=== PATIENT | male | born 1960 | race Caucasian/White ===

== ENCOUNTER → 2016-05-01 | Outpatient (CLI) | payer OTHER ==
--- NOTE | 2016-05-01 15:41 | US ---
EXAMINATION TYPE: US kidneys/renal and bladder DATE OF EXAM: 05/01/2016 2:57 PM COMPARISON: NONE CLINICAL HISTORY: R31.9 Hematuria. 2 weeks ago now off and on since EXAM MEASUREMENTS: Right Kidney: 10.1 x 5.2 x 5.9 cm Left Kidney: 10.4 x 5.6 x 5.7 cm Post Void Residual Volume: 10.7 mL TECHNOLOGIST IMPRESSION: Right Kidney: lower pole 0.5 x 0.9 x 1.0 cm, 0.7 x 0.8 x 0.6 cm nonshadowing hyperechoic areas, no nspecific, nonobstructing renal calculi are not excluded Left Kidney: 2.5 x 1.8 x 1.7 cm mid pole ? Column of Jonn suspected with focal cortical prominence. Bladder: solid mass left side of bladder 2.7 x 3.2 x 2.6 cm some vascularity Bilateral Jets seen: rt only Normal Post Void Residual: yes There is no evidence for hydronephrosis at this point in time. No nephrolithiasis is seen. No gaviota s are identified. The urinary bladder is anechoic. Bilateral ureteral jets are seen. Urinary bladder is poorly distended there is suspicious 2.8 x 2.6 cm round partially exophytic mass i nferiorly and posteriorly that warrants follow-up. At end of exam bladder is nearly completely emptie d on voiding. IMPRESSION: A suspicious 3.2 cm bladder wall mass is felt present, neoplasm to be excluded, further investigation with direct visualization is advised.
== END | disposition home or self-care (01) ==
LOC: RADUSWWP 14:53
PROVIDERS: ATTEND Family Medicine
DX: R31.9 Hematuria, unspecified (principal)
CPT/HCPCS: 76770

== ENCOUNTER → 2016-05-20 | Outpatient (CLI) | payer OTHER ==
--- NOTE | 2016-05-20 13:33 | CT ---
EXAMINATION TYPE: CT abdomen pelvis w con DATE OF EXAM: 05/20/2016 1:12 PM COMPARISON: NONE HISTORY: 56-year-old male Hematuria TECHNIQUE: Contiguous axial scanning of the abdomen and pelvis following administration of 100 ml Omn ipaque 300 IV contrast. Delayed images through the kidneys and bladder and coronal/sagittal reconstr uctions performed. CT DLP: 2512 mGycm Automated exposure control for dose reduction was used. FINDINGS: Heart is normal size without pericardial effusion. Lung bases show tiny 5 mm and smaller pulmonary no dules in the lingula and left lower lobe, axial images 1 and 6. No pleural effusion. Tiny hiatal hernia. There is diffuse low attenuation of the hepatic parenchyma without focal lesion appreciated there is suggestion of some fatty sparing in the central liver. Portal venous system is patent. No biliary du ctal dilatation. Gallbladder, adrenal glands, left kidney, spleen, and pancreas appear within normal limits. A couple nonobstructing calculi lower pole right kidney measuring 6 and 5 mm. There is also a subcent imeter hypodensity anterior mid pole right kidney too small fractured CT characterization, most likel y a cyst. There is symmetric uptake and excretion of contrast by both kidneys. No dilated small bowel, free fluid, or free air. Normal appendix. No mesenteric or retroperitoneal lymphadenopathy. Oral contrast has progressed to the rectum. There is sigmoid diverticulosis with focal moderate wall thickening and mild adjacent inflammatory fa t stranding at the mid to distal sigmoid, axial images 68 and 69. Bladder is urine distended. There are suspicious enhancing mural-based masses one along the left late ral bladder wall measuring 2.6 cm and one along the posterior bladder base measuring 1.9 cm. There is a small to moderate-sized containing left inguinal hernia. No abnormal fluid collection in t he pelvis or pelvic lymphadenopathy seen. Bones: Mild degenerative changes at the hips and right SI joint. Degenerative disc disease in the mid to lower lumbar spine. No osseous destructive process. IMPRESSION: 1. A LEFT LATERAL BLADDER MASS AND A POSTERIOR BLADDER BASE MASS MEASURING 2.6 AND 1.9 CM, RESPECTIVE LY, HIGHLY SUSPICIOUS FOR TCC. 2. SIGMOID DIVERTICULOSIS BUT WITH MODERATE WALL THICKENING AND ADJACENT INFLAMMATION AT THE LEVEL OF THE MID TO DISTAL SIGMOID. FINDINGS SUGGEST UNCOMPLICATED ACUTE DIVERTICULITIS. RECOMMEND FOLLOW-UP COLONOSCOPY AFTER SUCCESSFUL MANAGEMENT TO EXCLUDE AN UNDERLYING INFLAMMATORY COLON CANCER. 3. NONSPECIFIC 5 MM AND SMALLER LEFT BASILAR PULMONARY NODULES. RECOMMEND CONTRAST ENHANCED CT CHEST TO SURVEY THE ENTIRE LUNGS. 4. OTHERWISE, NO SUSPICIOUS FINDINGS IN THE ABDOMEN OR PELVIS TO SUGGEST METASTATIC DISEASE. 5. HEPATIC STEATOSIS AND NONOBSTRUCTIVE RIGHT SIDED NEPHROLITHIASIS MEASURING UP TO 6 MM. Physician is not on the Verify system. The microbiology technologist will notify the physician's office immedia tely following the dictation.
== END | disposition home or self-care (01) ==
LOC: RADCTMAIN 12:29
PROVIDERS: ATTEND Family Medicine
DX: N20.0 Calculus of kidney (principal); N32.89 Other specified disorders of bladder; K57.30 Diverticulosis of large intestine without perforation or abscess without bleeding; K76.0 Fatty (change of) liver, not elsewhere classified
CPT/HCPCS: 74177; Q9967

== ENCOUNTER 2016-08-04 08:53 | Day surgery (SDC) | payer OTHER ==
[2016-07-31 10:30] VITALS: BMI 35.4
[~2016-08-04 08:53] MED LIST: LACTATED RINGERS 1,000 ML IV SCH
[2016-08-04 09:34] VITALS: RESP 16; TEMP 97.1
[2016-08-04] MEDS ORDERED: LIDOCAINE 1% 20 ML VIAL (10MG/ML) FOR IV START INTRADERMA ONE (09:48)
[2016-08-04] MEDS ORDERED: fentaNYL (PF) 50 MCG/ML 2 ML AMP ONE (10:27)
[2016-08-04] MEDS ORDERED: MIDAZOLAM 2 MG/2 ML VIAL ONE (10:27)
[2016-08-04] MEDS ORDERED: PROPOFOL 10 MG/ML 20 ML VIAL IV ONE (10:27)
--- NOTE | 2016-08-04 10:57 | P.PCN ---
Date of Procedure: 08/04/16 Procedure(s) Performed: Procedure: Total colonoscopy. Preoperative diagnosis: Screening for neoplasia. Postoperative diagnosis: Diverticulosis with no evidence of acute diverticulitis , strictures, polyps or cancer area Preparation: HalfLytely prep. Sedation: Was provided by anesthesia. Brief clinical history: The patient is a 56-year-old male who was scheduled for this evaluation because of history of polyps. His last exam was in May 2010. At this time he has no abdominal complaints bleeding or anemia. Procedure: With the patient on his left lateral decubitus position and after informed consent and adequate sedation, the perianal area was inspected and it did not show any fissures or fistulas. There were no masses felt on digital rectal examination. The Olympus CFQ 160L video colonoscope was then inserted in the rectum in the usual fashion and advanced to the cecum. There were multiple diverticular orifices seen scattered in the sigmoid with no evidence of acute diverticulitis or strictures. There was occasional diverticular orifices seen around the hepatic flexure. The mucosa appeared healthy. No polyps or tumors were seen. I retroflexed the endoscope in the rectum before the endoscope was withdrawn. The patient tolerated the procedure well. Plan: The patient was reassured. Discussed dietary measures. He will follow up with you as planned and I recommended a repeat exam in 5 years.
[2016-08-04 11:39] VITALS: BP 121/77; PULSE 45
== END 2016-08-04 11:41 | disposition home or self-care (01) ==
LOC: ORWHC2ENDO 08:53
DX: Z12.11 Encounter for screening for malignant neoplasm of colon (principal); Z86.010 Personal history of colon polyps; K57.30 Diverticulosis of large intestine without perforation or abscess without bleeding; I10 Essential (primary) hypertension; Z85.51 Personal history of malignant neoplasm of bladder; Z79.82 Long term (current) use of aspirin; Z79.899 Other long term (current) drug therapy; Z88.6 Allergy status to analgesic agent
CPT/HCPCS: J2250; J3010; J2704; G0105; 45378

== ENCOUNTER → 2017-05-01 | Outpatient (CLI) | payer BC ==
--- NOTE | 2017-05-01 10:08 | US ---
EXAMINATION TYPE: US kidneys/renal and bladder DATE OF EXAM: 05/01/2017 COMPARISON: CT & US CLINICAL HISTORY: D49.4 F/U Staging Ca Bladder. history of tumors removed from bladder. EXAM MEASUREMENTS: Right Kidney: 11.0 x 5.8 x 5.7 cm Left Kidney: 10.3 x 6.2 x 5.4 cm Right Kidney: No hydronephrosis or masses seen Left Kidney: No hydronephrosis or masses seen Bladder: wnl. No suspicious urinary bladder abnormality is identified at this time by ultrasound. Bilateral Jets seen: no IMPRESSION: 1. Normal retroperitoneal ultrasound.
== END | disposition home or self-care (01) ==
LOC: RADUSWWP 09:37
PROVIDERS: ATTEND Urology
DX: D49.4 Neoplasm of unspecified behavior of bladder (principal)
CPT/HCPCS: 76770

== ENCOUNTER → 2017-05-08 | Outpatient (CLI) | payer BC ==
--- NOTE | 2017-05-08 12:55 | EST ---
EXERCISE STRESS DATE OF SERVICE: 05/08/2017 AGE: 57 SEX: Male HT: 5'9" WT: 245 PROTOCOL: JUNG STAGE: III DURATION OF EXERCISE: 9 minutes HEART RATE REST: 73 BLOOD PRESSURE REST: 148/88 MAXIMUM HEART RATE ACHIEVED: 160 MAXIMUM BLOOD PRESSURE: 186/103 85% MPHR: 139 100% MPHR: 163 METS: 10.5 INDICATIONS: Chest pain. CLINICAL INFORMATION: Baseline rhythm is sinus mechanism, rate is 73, normal axis, intervals, Rare PVCs. Baseline blood pressure 148/88 mmHg. Patient exercised on Jung protocol for 9 minute reaching peak rate of 160 beats per minute, which is equal to 98% maximum predicted heart rate. Peak blood pressure 186/103 mmHg. Test was terminated secondary to fatigue. There was no chest pain. Electrocardiographic monitoring revealed occasional PVCs. There was no evidence of diagnostic ischemic ST deviation. CONCLUSION: 1. Good exercise tolerance with no evidence of chest pain. 2. Occasional premature ventricular contractions. 3. Normal electrocardiograph response to exercise with no evidence of exercise-induced ischemia. MMODL / IJN: [id number] /
== END | disposition home or self-care (01) ==
LOC: RADNMMAIN 11:13
PROVIDERS: ATTEND Family Medicine
DX: I49.3 Ventricular premature depolarization (principal)
CPT/HCPCS: 93017

== ENCOUNTER 2017-07-19 17:28 | Emergency (ER) | payer BC ==
[2017-07-19 17:53] VITALS: BP 127/73; PULSE 57; RESP 18; TEMP 98.8
[2017-07-19] MEDS ORDERED: DIPH,PERTUS(ACELL)TETVAC-LF 0.5 ML VIAL IM ONE (18:07)
--- NOTE | 2017-07-19 18:25 | XR ---
EXAMINATION TYPE: XR finger RT DATE OF EXAM: 07/19/2017 COMPARISON: NONE HISTORY: Table saw injury with laceration to the right fifth digit. TECHNIQUE: 4 views of the right fifth digit were obtained FINDINGS: There is an acute complete comminuted fracture of the proximal ulnar aspect of the distal p halanx of the fifth digit. Several mineralized foci are identified at this location. These are felt t o be bone fragments and not metallic fragments. Possibility of radiopaque foreign body is however not fully excluded but thought to be unlikely. Diffuse soft tissue swelling is noted in the fifth digit. IMPRESSION: Comminuted nondisplaced fracture along the proximal ulnar aspect of the fifth finger dist al phalanx.
--- NOTE | 2017-07-19 18:29 | ED ---
General Adult HPI - General Chief complaint: Wound/Laceration Stated complaint: Laceration Right Pinky Time Seen by Provider: 07/19/17 18:02 Source: patient, RN notes reviewed Mode of arrival: ambulatory Limitations: no limitations - History of Present Illness Initial comments: 57-year-old male presents to the emergency department for a chief complaint of laceration. Patient states that about one hour ago he was using a table saw when he cut the tip of his pinky finger. Patient denies any other injuries from this. Patient states he has full sensation in the pinky finger. Patient has no other complaints at this time including shortness of breath, chest pain, abdominal pain, headache, nausea or vomiting. Tetanus up to date as of 3 weeks ago. - Related Data Home Medications Medication Instructions Recorded Confirmed Aspirin [Adult Low Dose Aspirin EC] 81 mg PO DAILY 07/31/16 08/04/16 Atenolol [Tenormin] 50 mg PO DAILY 07/31/16 08/04/16 Cholecalciferol [Vitamin D3] 5,000 unit PO DAILY 07/31/16 08/04/16 Previous Rx's Medication Instructions Recorded Cephalexin [Keflex] 500 mg PO Q12HR #20 cap 07/19/17 Allergies Allergy/AdvReac Type Severity Reaction Status Date / Time tolmetin [From Tolectin] Allergy Unknown Rash/Hives Verified 07/19/17 17:53 Review of Systems ROS Statement: Those systems with pertinent positive or pertinent negative responses have been documented in the HPI. ROS Other: All systems not noted in ROS Statement are negative. Past Medical History Past Medical History: Cancer, Hypertension Additional Past Medical History / Comment(s): HX OF POLYPS, BLADDER TUMORS WITH CHEMO TO BLADDER (MITOMYCIN- LAST RECEIVED APPROX 1 1/2 MONTHS AGO.) History of Any Multi-Drug Resistant Organisms: None Reported Past Surgical History: Hernia Repair Additional Past Surgical History / Comment(s): HERNIA (AGE 16), BLADDER TUMORS. Past Anesthesia/Blood Transfusion Reactions: No Reported Reaction Past Psychological History: No Psychological Hx Reported Smoking Status: Former smoker Past Alcohol Use History: Occasional Past Drug Use History: None Reported - Past Family History Mother Family Medical History: No Reported History General Exam Limitations: no limitations General appearance: alert, in no apparent distress Respiratory exam: Present: normal lung sounds bilaterally. Absent: respiratory distress, wheezes, rales, rhonchi, stridor Cardiovascular Exam: Present: regular rate, normal rhythm, normal heart sounds. Absent: systolic murmur, diastolic murmur, rubs, gallop, clicks Extremities exam: Present: full ROM (Full range of motion of the fifth digit. He is able to flex and extend the fifth digit against resistance including the distal phalanx.), tenderness (Tenderness to the distal phalanx of the fifth digit.), normal capillary refill (Cap refill less than 5 seconds), other (There is an avulsion type laceration to the fifth digit finger pad of the right hand about 2 cm in length.). Absent: pedal edema, joint swelling Course Vital Signs 07/19/17 17:50 Temperature 98.8 F Pulse Rate 57 L Respiratory 18 Rate Blood Pressure 127/73 O2 Sat by Pulse 96 Oximetry Procedures - Procedures Initial comment: Body area: finger pad of 5th digit of right hand extending into lateral side of finger Laceration length: 3 cm Foreign bodies: no foreign bodies Tendon involvement: none Nerve involvement: none Vascular damage: no Anesthesia: digital block Local anesthetic:6 mL 1% lidocaine Preparation: Patient was prepped and draped in the usual sterile fashion. Irrigation solution: Wound was soaked in sterile water, iodine, and soap. Wound was then irrigated with saline jet lavage. It was then cleaned out further with iodine and inspected for deep structure involvement. Irrigation method:saline jet lavage Skin closure:5-0 and 4-0 Ethilon using sterile technique Number of sutures: 4 4-0 and 9 5-0: 13 sutures in total Technique: interupted Dressing: antibiotic ointment/ gauze Patient tolerance: Patient tolerated the procedure well with no immediate complications. Medical Decision Making - Medical Decision Making 57-year-old male says to the emergency department for chief complaint of laceration to the fifth digit of the right hand with a saw. Tetanus up-to- date. The wound is about 3 cm in length and is stellate in form. There are multiple flaps to the wound. Neurovascular intact in the distal phalanx of the fifth digit. X-ray demonstrates a small comminuted fracture. Patient was given a shot of Ancef in the emergency department. Wound was sutured with 13 sutures after it was very well urinated and cleaned with iodine. Wound was covered with bacitracin and dressed with nonstick dressing. Splint was applied. Verbalized patient to return in 7-10 days for suture removal. He is to follow up with orthopedics tomorrow. He will return if he notices any signs of infection or has any worsening symptoms. - Radiology Data Comminuted nondisplaced fracture along the proximal ulnar aspect of the fifth digit distal phalanx right hand Disposition Clinical Impression: Laceration, Open fracture Disposition: HOME SELF-CARE Condition: Good Instructions: Care For Your Stitches (ED), Laceration (ED) Additional Instructions: Please take Keflex as directed. Keep the wound clean and covered until you see orthopedics. He may elevate the hand for pain relief as well as ice the finger. Motrin or Tylenol for pain relief. Follow up with orthopedics tomorrow. Please return to the emergency department if you have any worsening symptoms or signs of infection. Prescriptions: Cephalexin [Keflex] 500 mg PO Q12HR #20 cap Is patient prescribed a controlled substance at d/c from ED?: No Referrals: Harsha Yadav MD [Primary Care Provider] - 1-2 days Silvino Wood DO [Doctor of Osteopathic Medicine] - 1-2 days Time of Disposition: 20:37
[2017-07-19] MEDS ORDERED: ceFAZolin 1,000 MG VIAL IM STA (19:02)
== END 2017-07-19 20:46 | disposition home or self-care (01) ==
LOC: EC 17:28
DX: S62.666B Nondisplaced fracture of distal phalanx of right little finger, initial encounter for open fracture (principal); S61.216A Laceration without foreign body of right little finger without damage to nail, initial encounter; I10 Essential (primary) hypertension; Z53.29 Procedure and treatment not carried out because of patient's decision for other reasons; Z85.51 Personal history of malignant neoplasm of bladder; Z87.891 Personal history of nicotine dependence; Z79.82 Long term (current) use of aspirin; Z79.899 Other long term (current) drug therapy; Z88.6 Allergy status to analgesic agent; W31.2XXA Contact with powered woodworking and forming machines, initial encounter; Y92.009 Unspecified place in unspecified non-institutional (private) residence as the place of occurrence of the external cause
CPT/HCPCS: 73140; 99283; 12002; 96372; J0690

== ENCOUNTER → 2017-08-04 | Outpatient (CLI) | payer BC ==
--- NOTE | 2017-08-04 18:31 | CONS ---
CONSULTATION REASON FOR CONSULTATION: Sleep apnea. 57-year-old male patient, referred from [facility] to evaluate for sleep apnea. The patient presented for DOC certification who was referred to me for further workup. He has minimal snoring and no major hypersomnia or sleepiness. His BMI 36.1 with a neck size of 18 inches with a Mallampati class IV. 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 No history of any hypersomnia or sleepiness. No history of any recent weight gain or weight loss. Remsen Score is at 1. Goes to bed around 9 p.m., wakes up between 5 to 7:00 am in the morning. Refreshed. No restlessness in his lower extremities. No night terrors. No nightmares. No sleepwalking or sleep talking. No grinding of the teeth. No other complaints otherwise. PAST MEDICAL HISTORY: Hypertension and bladder cancer. SURGICAL HISTORY: Hernia repair and resection of bladder tumor transurethral. DRUG ALLERGIES: Are not known. MEDICATION: Includes lisinopril, metoprolol, vitamin D3 and aspirin. SOCIAL HISTORY: Nonsmoker. No history of alcohol. No history of IV drugs. FAMILY HISTORY: Brother positive for sleep apnea. REVIEW OF SYSTEMS: 12-point review of system was done. Of significance is the absence of any fatigue and sleepiness. No witnessed apneas. No insomnia. There are episodes of nocturia. He reports episodes of nocturia where he gets up 2-3 times and utilize the bathroom and this has been a chronic problem. No anxiety or panic attacks. No palpitation. No heartburn. No sweating. No anxiety and no depression. No claustrophobia. PHYSICAL EXAMINATION: BP is 107/77, pulse 60 respirations 16, temperature 97.5, saturation 96% on room air. Weight is 245. Height is 5 feet 9 inches. Neck size 18 inches. General appearance calm comfortable in no acute distress. Head is atraumatic, normocephalic. Neck: Mallampati class IV. There is no goiter or neck masses. LUNGS: Clear to auscultation. HEART: Sounds regular rate and rhythm. Normal S1, S2. No S3, S4. No murmurs. ABDOMEN: Soft, nontender. No organomegaly. EXTREMITIES: No edema. No cyanosis or clubbing. NEUROLOGIC: A and O x3. There is no focal neurological deficits. Psychiatrically is appropriate mood and affect. SKIN: Negative for any wounds or ulceration. IMPRESSION: 1. Obstructive sleep apnea suspected clinically we will need further investigation. 2. Obesity with a body mass index of 36.1. 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 4. 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 5. Bladder cancer. PLAN: Overall suspicion for KELLY is low and proceed with a home sleep study. This will be a screening test for obstructive sleep apnea. We will treat this patient accordingly. Encourage weight loss. We will continue to follow. MMODL / IJN: [id number] /
== END | disposition home or self-care (01) ==
LOC: SLEEP 16:42
PROVIDERS: ATTEND Internal Medicine Critical Care Medicine
DX: R06.83 Snoring (principal); I10 Essential (primary) hypertension; E66.9 Obesity, unspecified; C67.9 Malignant neoplasm of bladder, unspecified; Z98.890 Other specified postprocedural states; Z79.82 Long term (current) use of aspirin; Z79.899 Other long term (current) drug therapy; Z68.36 Body mass index [BMI] 36.0-36.9, adult
CPT/HCPCS: 99211

== ENCOUNTER → 2018-07-26 | Outpatient (CLI) | payer BC ==
--- NOTE | 2018-07-26 09:11 | US ---
EXAMINATION TYPE: US kidneys/renal and bladder DATE OF EXAM: 07/26/2018 COMPARISON: NONE CLINICAL HISTORY: D49.4 F/U staging bladder ca. EXAM MEASUREMENTS: Right Kidney: 10.4 x 5.5 x 5.7 cm Left Kidney: 10.7 x 5.5 x 4.7 cm Right Kidney: shadowing echogenic foci, probable stone measuring 0.5 x 0.3 x 0.5cm Left Kidney: prominent renal pelvis vs mild hydro Bladder: wnl Bilateral Jets seen: Yes No masses are identified. The urinary bladder is anechoic. Bilateral ureteral jets are seen. IMPRESSION: Nonobstructing nephrolithiasis. Prominence of the left renal pelvis with mild Trevorton difficult to excl ude.
== END | disposition home or self-care (01) ==
LOC: RADUSWWP 08:27
PROVIDERS: ATTEND Urology
DX: N20.0 Calculus of kidney (principal); D49.4 Neoplasm of unspecified behavior of bladder
CPT/HCPCS: 76770

== ENCOUNTER → 2019-09-12 | Outpatient (CLI) | payer BC ==
[2019-09-12 15:58] LABS: African American GFR (CKD) >90 (>60 ml/min/1.73 sqM); Blood Urea Nitrogen 18 mg/dL (9-20); Non-African American GFR(CKD) 85 (>60 ml/min/1.73 sqM)
--- NOTE | 2019-09-12 19:06 | CT ---
EXAMINATION TYPE: CT abdomen pelvis w con DATE OF EXAM: 09/12/2019 COMPARISON: 05/20/2016 HISTORY: Air bubbles during urination with history of bladder cancer. CT DLP: 1895 mGycm CONTRAST: CT scan of the abdomen and pelvis is performed with Oral Contrast and with IV Contrast, patient injec zachery with 100 mL of Isovue 300. FINDINGS: LUNG BASES-: Stable sub-5 mm pulmonary nodules at the left lower lobe. Totaling 4 in number. No infil trate. LIVER/GB: No calcified gallstones. No space occupying hepatic lesion. Biliary tree is of normal ca liber. PANCREAS: No inflammation. No distinct mass. SPLEEN: No splenic enlargement. No lesion seen. ADRENALS: No nodule. No thickening. KIDNEYS/BLADDER: There is air within the urinary bladder. On sagittal image 61 there appears to be p ossible fistulous communication with the colon. Correlate clinically. There is nonobstructing nephrol ithiasis lower pole right kidney. No hydronephrosis. No nephrolithiasis. No distinct renal mass. BOWEL: Normal appendix. Sigmoid diverticulosis without active diverticulitis. Normal bowel caliber. No inflammation. GENITAL ORGANS: No gross abnormality. LYMPH NODES: No greater than 1cm abdominal or pelvic lymph nodes are appreciated. AORTA: No significant abnormality. OSSEOUS STRUCTURES: No significant abnormality is seen. OTHER: Fat-containing inguinal hernia on the left. IMPRESSION: 1. There is air within the urinary bladder. On sagittal image 61 there appears to be possible fistulo us communication with the colon. Correlate clinically 2. Sigmoid diverticulosis without active diverticulitis at this time. 3. Stable left lower lobe pulmonary nodules. 4. Nonobstructing nephrolithiasis right kidney.
== END | disposition home or self-care (01) ==
LOC: RADCTMAIN 14:38
PROVIDERS: ATTEND Urology
DX: K57.30 Diverticulosis of large intestine without perforation or abscess without bleeding (principal); N20.0 Calculus of kidney; C67.9 Malignant neoplasm of bladder, unspecified; Z88.6 Allergy status to analgesic agent
CPT/HCPCS: 82565; 84520; 74177; 36415; Q9967

== ENCOUNTER → 2019-12-21 | Outpatient (CLI) | payer BC ==
[2019-12-21 10:14] LABS: HCT 50.3 % (39.0-53.0); HGB 16.9 gm/dL (13.0-17.5); MCH 29.9 pg (25.0-35.0); MCHC 33.6 g/dL (31.0-37.0); Mean Platelet Volume 7.7; Platelet Count 170 k/uL (150-450); RBC 5.65 m/uL (4.30-5.90); RDW 12.8 % (11.5-15.5); WBC 10.8 k/uL (3.8-10.6)
[2019-12-21 10:27] LABS: Potassium 4.5 mmol/L (3.5-5.1)
== END | disposition home or self-care (01) ==
LOC: LABPAT 08:55
PROVIDERS: ATTEND Surgery
DX: Z01.818 Encounter for other preprocedural examination (principal); N32.1 Vesicointestinal fistula
CPT/HCPCS: 36415; 80051; 85027; 86850; 86900; 86901; 93005

== ENCOUNTER 2019-12-29 11:50 | Inpatient (IN) | payer BC ==
--- NOTE | 2019-12-29 12:41 | P.GSHP ---
History of Present Illness H&P Date: 12/29/19 Chief Complaint: Colovesical fistula 59-year-old male seen in the office in October. Patient with recent diagnosis of colovesical fistula. Here today for colonoscopy. Mild crampy gassy pains at times. Some pneumaturia occasionally. Scheduled for sigmoid colectomy tomorro w. Past Medical History Past Medical History: Cancer, Hypertension, Prostate Disorder Additional Past Medical History / Comment(s): HX OF POLYPS, BLADDER TUMORS WITH CHEMO TO BLADDER (MITOMYCIN- LAST RECEIVED APPROX 2014) History of Any Multi-Drug Resistant Organisms: None Reported Past Surgical History: Hernia Repair Additional Past Surgical History / Comment(s): HERNIA (AGE 16), sx to remove BLADDER TUMORS. Past Anesthesia/Blood Transfusion Reactions: No Reported Reaction Smoking Status: Former smoker - Past Family History Mother Family Medical History: No Reported History Medications and Allergies Home Medications Medication Instructions Recorded Confirmed Type Aspirin EC [Ecotrin Low Dose] 81 mg PO DAILY 12/26/19 12/26/19 History Canagliflozin/Metformin HCl 1 each PO QAM 12/26/19 12/26/19 History [Invokamet 150-1,000 mg Tablet] Celecoxib [CeleBREX] 200 mg PO DAILY 12/26/19 12/26/19 History Cholecalciferol [Vitamin D3 (25 5,000 unit PO DAILY 12/26/19 12/26/19 History Mcg = 1000 Iu)] Losartan [Cozaar] 50 mg PO QAM 12/26/19 12/26/19 History Metoprolol Succinate [Toprol XL] 50 mg PO QAM 12/26/19 12/26/19 History Omeprazole 40 mg PO DAILY 12/26/19 12/26/19 History Tamsulosin [Flomax] 0.4 mg PO DAILY 12/26/19 12/26/19 History Allergies Allergy/AdvReac Type Severity Reaction Status Date / Time tolmetin [From Tolectin] Allergy Unknown Rash/Hives Verified 12/26/19 14:21 Surgical - Exam Physical exam: General: Well-developed, well-nourished HEENT: Normocephalic, sclerae nonicteric Abdomen: Nontender, nondistended Extremities: No edema Neuro: Alert and oriented Assessment and Plan (1) Colovesical fistula Narrative/Plan: Will proceed with colonoscopy at this time. Current Visit: Yes Status: Acute Code(s): N32.1 - VESICOINTESTINAL FISTULA SNOMED Code(s): 66124952
[2019-12-30] MEDS ORDERED: ACETAMINOPHEN TAB 500 MG TAB PO ONE (05:00)
[2019-12-30] MEDS ORDERED: ALVIMOPAN 12 MG CAPSULE PO ONE (05:00)
[2019-12-30] MEDS ORDERED: metroNIDAZOLE-NS PMX 500 MG in SALINE 1 100ML.BAG IVPB ONE (05:00)
[2019-12-30] MEDS ORDERED: DEXAMETHASONE SOD PHOSPHATE 10 MG/ML 1 ML VIAL IV ONE (05:43)
[2019-12-30] MEDS ORDERED: SCOPOLAMINE 1.5MG/72HR PATCH TRANSDERM ONE (05:43)
[2019-12-30] MEDS ORDERED: HYDROmorphone 0.5 MG/0.5 ML SYRINGE IVP PRN (05:43)
[2019-12-30] MEDS ORDERED: LIDOCAINE 1% (10MG/ML) FOR IV START INTRADERMA PRN (05:43)
[2019-12-30] MEDS ORDERED: ONDANSETRON 4 MG/2 ML VIAL IVP ONE (05:43)
[2019-12-30] MEDS ORDERED: HEPARIN SODIUM,PORCINE 5,000 UNIT/ML 1 ML VIAL SQ ONE (06:00)
[2019-12-30] MEDS: LACTATED RINGERS 1,000 ML IV SCH ×2 (08:56→14:43)
[2019-12-30] MEDS ORDERED: ACETAMINOPHEN TAB 500 MG TAB ONE (09:09)
[2019-12-30 09:39] LABS: Glucose,Whole Blood 122 mg/dL (75-99)
[2019-12-30] MEDS ORDERED: MIDAZOLAM 2 MG/2 ML VIAL IVP ONE (09:39)
--- NOTE | 2019-12-30 09:47 | P.HPADDEND ---
H&P Addendum H&P Addendum Date: 12/30/19 Patient returns today after colonoscopy yesterday. Had some bilious stained diarrhea last night. No abdominal pain. No pneumaturia. We'll proceed with elective sigmoid resection for colovesical fistula. Risks and benefits previously discussed in detail with the patient. All questions answered.
[2019-12-30] MEDS ORDERED: GLYCOPYRROLATE 0.2 MG/ML 2 ML VIAL ONE (10:08)
[2019-12-30] MEDS ORDERED: ROCURONIUM 10 MG/ML (10 ML VIAL) IV ONE (10:08)
[2019-12-30] MEDS ORDERED: SUCCINYLCHOLINE CHLORIDE 100 MG/5 ML SYR IV ONE (10:08)
[2019-12-30] MEDS ORDERED: LIDOCAINE 1% INJ 10MG/ML (20 ML MDV) ONE (10:08)
[2019-12-30] MEDS ORDERED: fentaNYL (PF) 50 MCG/ML 2 ML AMP ONE (10:08)
[2019-12-30] MEDS ORDERED: MIDAZOLAM 2 MG/2 ML VIAL ONE (10:08)
[2019-12-30] MEDS ORDERED: PROPOFOL 10 MG/ML 20 ML VIAL IV ONE (10:08)
[2019-12-30] MEDS ORDERED: PHENYLEPHRINE-0.9% NACL SYG 1 MG/10 ML SYRINGE ONE (10:08)
[2019-12-30] MEDS ORDERED: ePHEDrine SULFATE/0.9% NACL/PF 50 MG/5 ML SYRINGE IV ONE (10:08)
[2019-12-30] MEDS ORDERED: NEOSTIGMINE 1 MG/ML 10 ML VIAL ONE (10:08)
[2019-12-30] MEDS ORDERED: NALOXONE 0.4 MG/ML 1 ML VIAL IV PRN (10:32)
[2019-12-30] MEDS ORDERED: LACTATED RINGERS 1,000 ML IV ONE (11:00)
[2019-12-30] MEDS ORDERED: HYDROmorphone 1 MG/ML 1 ML SYRINGE IVP PRN (12:27)
[2019-12-30] MEDS ORDERED: METOCLOPRAMIDE 5 MG/ML 2 ML VIAL IVP PRN (12:27)
[2019-12-30] MEDS ORDERED: ONDANSETRON 4 MG/2 ML VIAL IVP PRN (12:27)
--- NOTE | 2019-12-30 12:31 | P.OP ---
Date of Procedure: 12/30/19 Procedure(s) Performed: PREOPERATIVE DIAGNOSIS: Colovesical fistula POSTOPERATIVE DIAGNOSIS: Same PROCEDURE: Low anterior sigmoid resection SURGEON: Elin EBL: 50 mL ANESTHESIA: General COMPLICATIONS: None OPERATIVE PROCEDURE: Patient place in the operative table in the supine position. The patient was placed under general anesthesia. The patient was then placed in lithotomy. The abdomen was prepped and draped in usual sterile fashion. A vertical incision was made extending from the infraumbilical l ocation to the suprapubic location. The fascia was divided as well. The Bookwalter retractor was utilized. The sigmoid colon was fully mobilized by incising the white line of Toldt. The left and right ureters were both identified and preserved. A site was chosen for division of the sigmoid colon proximally. The degree of chronic inflammatory changes was present in the mid to distal sigmoid colon. There was dense adhesions between the distal sigmoid colon and the bladder. Blunt dissection and electrocautery were used to separate these 2 structures. In doing so no visible hole was identified in either the bowel or the bladder. I did place a silk stitch on the specimen where the suspected fistula was present. A small colotomy was created and the 29 EEA anvil was advanced into the lumen of the sigmoid colon and milked proximally. The bowel was then divided using a linear 75 stapler and the anvil was brought out adjacent to the staple line. A 3-0 silk pursestring suture was placed around the anvil at that location. The mesentery was divided using the LigaSure device and Vicryl ties. Dissection took place down to the proximal rectum where the tenia was noted to splay out. The proximal rectum was divided using the contour stapler. The specimen was passed off the field at that point. No signs of bleeding at either staple line was noted after irrigation. The stapler was then inserted into the anus and brought up to the staple line. The obturator was brought out just anterior to the staple line. The 2 portions of the stapler were connected to one another and subsequently tightened and fired. The bowel was clamped proximal to the anastomosis. The rigid sigmoidoscope was utilized to fill the anastomotic site nicely with air. There was saline in the pelvis at this time. No evidence of leak was seen. The abdomen was irrigated with saline. The liver, stomach, visualized colon, and small bowel appeared normal by palpation. The midline fascia was then reapproximated using 2 separate double-stranded #1 PDS sutures. The subcutaneous tissues were closed using 3-0 Vicryl sutures. The skin was then closed using staci. Sterile dressings were then applied. DISPOSITION: Stable to recovery room
[2019-12-30] MEDS: ROPIVACAINE 250 MG, HYDROMORPHONE (PF) 5 MG in SODIUM CHLORIDE 0.9% 200 ML EPIDURAL PRN (12:47)
[2019-12-30 13:05] LABS: Glucose,Whole Blood 147 mg/dL (75-99)
--- NOTE | 2019-12-30 13:59 | P.ANPRN ---
Procedure Note - Anesthesia - Epidural/Spinal Epidural Continuous Time Out Performed: Yes Date of Procedure: 12/30/19 Procedure Start Time: 09:38 Procedure Stop Time: 09:47 Location of Patient: PreOp Indication: Acute Post-Operative Pain, Requested by Surgeon Sedation Type: Sedate with meaningful contact maintained Preparation: Sterile Dressing Position: Sitting Catheter: Indwelling Needle Guage: 18 Injectate: Test Dose Lidocaine1.5% w/1:200,000 epi Blood Aspirated: No Pain Paresthesia on Injection Noted: No Events: Uneventful and Well Tolerated (test dose 3cc given)
[2019-12-30] MEDS: D5-0.45% NACL WITH KCL 20MEQ/L 1,000 ML IV SCH ×2 (15:35→21:31)
[2019-12-30] MEDS: HEPARIN SODIUM,PORCINE 5,000 UNIT/ML 1 ML VIAL SQ SCH ×2 (15:39→23:25)
[2019-12-30 16:09] LABS: African American GFR (CKD) >90 (>60 ml/min/1.73 sqM); Anion Gap 8 mmol/L; Blood Urea Nitrogen 15 mg/dL (9-20); Calcium 9.3 mg/dL (8.4-10.2); Carbon Dioxide 29 mmol/L (22-30); Chloride 102 mmol/L (98-107); Glucose 146 mg/dL (74-99); Non-African American GFR(CKD) >90 (>60 ml/min/1.73 sqM); Potassium 4.6 mmol/L (3.5-5.1); Sodium 139 mmol/L (137-145)
[2019-12-30 21:10] LABS: Glucose,Whole Blood 212 mg/dL (75-99)
[2019-12-30] MEDS: FAMOTIDINE 20 MG/2 ML VIAL IV SCH (21:30)
[2019-12-30] MEDS: INSULIN ASPART (NovoLOG) 100 UNIT/ML VIAL SQ SCH (21:31)
[2019-12-31] MEDS: LACTATED RINGERS 1,000 ML IV SCH ×2 (04:55)
--- NOTE | 2019-12-31 06:20 | P.PN ---
Progress Note - Text Progress Note Date: 12/31/19 patient is POD#1, has a lumbar epidural running at 5 ml/hr when I visited the patient. he rates his pain as 0/10 even when trying to move in bed. he denies any excessive numbness or weakness in lower extremities he denies back pain or headache the epidural insertion site is clean with no redness or any fluid drainage. will leave the epidural in place for two more days unless the surgical team wants early discontinuation. will follow
[2019-12-31 06:39] LABS: Basophils % (A) 0 %; Eosinophils # (A) 0.1 k/uL (0-0.7); Eosinophils % (A) 1 %; HCT 53.8 % (39.0-53.0); HGB 17.1 gm/dL (13.0-17.5); Lymphocytes # (A) 1.2 k/uL (1.0-4.8); Lymphocytes % (A) 7 %; MCH 29.3 pg (25.0-35.0); MCHC 31.8 g/dL (31.0-37.0); MCV 92.2 fL (80.0-100.0); Mean Platelet Volume 7.5; Monocytes # (A) 1.6 k/uL (0-1.0); Monocytes % (A) 10 %; Neutrophils # (A) 13.9 k/uL (1.3-7.7); Neutrophils % (A) 82 %; Platelet Count 237 k/uL (150-450); RBC 5.84 m/uL (4.30-5.90); RDW 12.6 % (11.5-15.5)
[2019-12-31 06:52] LABS: Glucose,Whole Blood 176 mg/dL (75-99)
[2019-12-31] MEDS: ALVIMOPAN 12 MG CAPSULE PO SCH ×2 (07:39→20:20)
[2019-12-31] MEDS: INSULIN ASPART (NovoLOG) 100 UNIT/ML VIAL SQ SCH ×4 (07:39→20:20)
[2019-12-31] MEDS: D5-0.45% NACL WITH KCL 20MEQ/L 1,000 ML IV SCH ×4 (07:39→23:43)
[2019-12-31] MEDS: HEPARIN SODIUM,PORCINE 5,000 UNIT/ML 1 ML VIAL SQ SCH ×3 (07:39→23:43)
[2019-12-31] MEDS: LOSARTAN 50 MG TAB PO SCH (07:40)
[2019-12-31] MEDS: TAMSULOSIN 0.4 MG CAP.ER.24H PO SCH (07:40)
[2019-12-31] MEDS: FAMOTIDINE 20 MG/2 ML VIAL IV SCH ×2 (07:40→20:20)
[2019-12-31] MEDS ORDERED: METOPROLOL SUCCINATE (ER) 50 MG TAB.ER.24H PO SCH (09:00)
[2019-12-31 11:41] LABS: Glucose,Whole Blood 154 mg/dL (75-99)
--- NOTE | 2019-12-31 15:15 | P.CONS ---
History of Present Illness - Reason for Consult Consult date: 12/31/19 - History of Present Illness 59-year-old male patient history of bladder tumors treated with chemotherapy to bladder, admitted to the hospital with colovesical fistula. Patient underwent colonoscopy followed by elective lower anterior sigmoid resection on 12/[address] nash, does not have ostomy site. Sheridan catheter remains in place at this time. Patient is yet to pass gas or had bowel movement. Blood pressure stable po stoperatively, he has not be bradycardic, takes metoprolol at home which has been decreased to 25 mg. We'll check EKG, no known history of arrhythmia. Afebrile. Postoperative WBC 17.0, most likely reactive secondary to surgery as there is no evidence of acute infection. Has lumbar epidural for analgesia postop. Review of Systems Review Of Systems: Constitutional: No fever, no chills, no night sweats. EENT: No headache. No blurred vision or double vision, no loss of vision. Lungs: No shortness of breath, cough, no sputum production. No wheezing. Cardiovascular: No chest pain, no lower extremity edema. Abdominal: . Incisional pain Genitourinary: No dysuria, increased frequency, urgency. No urinary retention. Musculoskeletal: No myalgias. No muscle weakness Integumentary: No wounds, no lesions. Neurologic: No aphasia. No facial droop. No change in mentation. Psychiatric: No depression. No anxiety. No mood swings. Past Medical History Past Medical History: Cancer, Hypertension, Prostate Disorder Additional Past Medical History / Comment(s): HX OF POLYPS, BLADDER TUMORS WITH CHEMO TO BLADDER (MITOMYCIN- LAST RECEIVED APPROX 2014) History of Any Multi-Drug Resistant Organisms: None Reported Past Surgical History: Hernia Repair Additional Past Surgical History / Comment(s): HERNIA (AGE 16), sx to remove BLADDER TUMORS. Past Anesthesia/Blood Transfusion Reactions: No Reported Reaction Smoking Status: Former smoker - Past Family History Mother Family Medical History: No Reported History Medications and Allergies Home Medications Medication Instructions Recorded Confirmed Type Aspirin EC [Ecotrin Low Dose] 81 mg PO DAILY 12/26/19 12/30/19 History Canagliflozin/Metformin HCl 1 each PO QAM 12/26/19 12/30/19 History [Invokamet 150-1,000 mg Tablet] Celecoxib [CeleBREX] 200 mg PO DAILY 12/26/19 12/30/19 History Cholecalciferol [Vitamin D3 (25 5,000 unit PO DAILY 12/26/19 12/30/19 History Mcg = 1000 Iu)] Losartan [Cozaar] 50 mg PO QAM 12/26/19 12/30/19 History Metoprolol Succinate [Toprol XL] 50 mg PO QAM 12/26/19 12/30/19 History Omeprazole 40 mg PO DAILY 12/26/19 12/30/19 History Tamsulosin [Flomax] 0.4 mg PO DAILY 12/26/19 12/30/19 History Allergies Allergy/AdvReac Type Severity Reaction Status Date / Time tolmetin [From Tolectin] Allergy Unknown Rash/Hives Verified 12/30/19 08:45 Physical Exam Vitals: Vital Signs Temp Pulse Pulse Resp BP Pulse Ox 12/31/19 07:00 97.4 F L 53 L 18 152/77 95 12/31/19 01:31 97.5 F L 46 L 12 152/74 94 L 12/30/19 23:40 16 12/30/19 19:38 54 L 16 12/30/19 19:00 98.7 F 54 L 16 127/71 93 L 12/30/19 15:49 52 L 16 12/30/19 15:15 54 L 108/62 91 L Intake and Output 12/31/19 12/31/19 12/31/19 06:59 14:59 22:59 Intake Total 1000 1080 Output Total 525 Balance 475 1080 Intake: Intake, IV Titration 1000 Amount D5-0.45% NaCl with KCl 1000 20Meq/l 1,000 ml @ 125 mls/hr IV .Q8H [facility] Rx#: [id number] Oral 1080 Output: Urine 225 Emesis 300 Other: Voiding Method Indwelling Catheter Indwelling Catheter # Emeses 1 Gen: This is a [ ] HEENT: Head is atraumatic, normocephalic. Pupils equal, round. Sclerae is anicteric. NECK: Supple. No JVD. No lymphadenopathy. No thyromegaly. LUNGS: Clear to auscultation. No wheezes or rhonchi. No intercostal retractions. HEART: Regular rate and rhythm. No murmur. ABDOMEN: Soft. Bowel sounds are sluggish. No masses. No tenderness. EXTREMITIES: No pedal edema. No calf tenderness. NEUROLOGICAL: Patient is awake, alert and oriented x3. Cranial nerves 2 through 12 are grossly intact. Results CBC & Chem 7: 12/31/19 06:05 12/30/19 15:28 Labs: Abnormal Lab Results - Last 24 Hours (Table) 12/30/19 12/30/19 12/31/19 Range/Units 15:28 21:08 06:05 WBC 17.0 H (3.8-10.6) k/uL Hct 53.8 H (39.0-53.0) % Neutrophils # 13.9 H (1.3-7.7) k/uL Monocytes # 1.6 H (0-1.0) k/uL Glucose 146 H (74-99) mg/dL POC Glucose (mg/dL) 212 H (75-99) mg/dL 12/31/19 12/31/19 Range/Units 06:52 11:40 WBC (3.8-10.6) k/uL Hct (39.0-53.0) % Neutrophils # (1.3-7.7) k/uL Monocytes # (0-1.0) k/uL Glucose (74-99) mg/dL POC Glucose (mg/dL) 176 H 154 H (75-99) mg/dL Assessment and Plan Assessment: - Plan: Assessment and Plan -Colovesical fistula most probably secondary due to past history of chemotherapy for bladder tumors: Day 1 postop following or anterior sigmoid resection, no ostomy site. -Leukocytosis: Most probably reactive secondary to surgery, no evidence of acute infection -Asymptomatic bradycardia: Possibly secondary to beta karen, we'll decrease metoprolol 25 daily and check EKG -Type 2 diabetes mellitus: Using oral agents at home including metformin, we will use insulin sliding scale -BPH: Continue home dose of Flomax, Sheridan catheter remains in place at this time. -Hypertension: Continued on losartan, and metoprolol 25 daily, blood pressure is stable DVT prophylaxis per primary team-
--- NOTE | 2019-12-31 15:22 | P.PN ---
Subjective Progress Note Date: 12/31/19 CHIEF COMPLAINT: Diverticulitis HISTORY OF PRESENT ILLNESS: The patient is a 59-year-old male status post sigmoid colectomy for diverticulitis. Patient is status post sigmoid colectomy. He's been in bed. He reports no flatus or bowel movements. He is tolerating liquids. ROS: No reports of nausea and vomiting. No bowel movements. No fevers or chills. No new chest pain. No productive sputum PHYSICAL EXAM: VITAL SIGNS: Reviewed CONSTITUTIONAL: Well developed and in no acute distress. EYES: Conjuctivae without sclera icterus. Extraocular movements grossly intact. HEAD, EARS, NOSE, THROAT: Moist buccal mucosa. Head is atraumatic, normocephalic. Hears conversational speech. No nasal drainage. NECK: Supple. No thyroidomegaly. RESPIRATORY: Non-labored respirations and equal bilateral excursions. CARDIOVASCULAR: Palpable 2+ radial pulses. Regular rate. Regular rhythm. ABDOMEN: Incisions clean dry and intact. Soft. No peritonitis. MUSCULOSKELETAL: No gross deformity of the lower extremities noted. No clubbing. No cyanosis. SKIN: Good skin turgor. Well perfused. NEUROLOGIC: Cranial nerves II through XII grossly intact. No focal or lateralizing signs. PSYCH: Appropriate affect. Alert and oriented to person, place and time. CLINICAL LABS: White blood cell count elevated over 17,000 ASSESSMENT: 1. Diverticulitis with colovesical fistula PLAN: 1. Patient advised to ambulate. 2. Continue Sheridan cath and epidural. 3. Continue antibiotics Objective - Vital Signs Vital signs: Vital Signs Temp 97.4 F L 12/31/19 07:00 Pulse 53 L 12/31/19 07:00 Resp 18 12/31/19 07:00 BP 152/77 12/31/19 07:00 Pulse Ox 95 12/31/19 07:00 Intake & Output 12/30/19 12/31/19 12/31/19 18:59 06:59 18:59 Intake Total 2119 1999 1079 Output Total 350 2024 Balance 1770 -25 1080 Weight 100 kg Intake: IV 2120 Intake, IV Titration 2000 Amount D5-0.45% NaCl with KCl 2000 20Meq/l 1,000 ml @ 125 mls/hr IV .Q8H [facility] Rx#: [id number] Oral 1080 Output: Urine 300 725 Emesis 1300 Estimated Blood Loss 50 Other: Voiding Method Indwelling Catheter Indwelling Catheter # Emeses 1 - Labs CBC & Chem 7: 12/31/19 06:05 12/30/19 15:28 Labs: Abnormal Lab Results - Last 24 Hours (Table) 12/30/19 12/30/19 12/31/19 Range/Units 15:28 21:08 06:05 WBC 17.0 H (3.8-10.6) k/uL Hct 53.8 H (39.0-53.0) % Neutrophils # 13.9 H (1.3-7.7) k/uL Monocytes # 1.6 H (0-1.0) k/uL Glucose 146 H (74-99) mg/dL POC Glucose (mg/dL) 212 H (75-99) mg/dL 12/31/19 12/31/19 Range/Units 06:52 11:40 WBC (3.8-10.6) k/uL Hct (39.0-53.0) % Neutrophils # (1.3-7.7) k/uL Monocytes # (0-1.0) k/uL Glucose (74-99) mg/dL POC Glucose (mg/dL) 176 H 154 H (75-99) mg/dL Assessment and Plan (1) Diverticulitis Current Visit: Yes Status: Acute Code(s): K57.92 - DVTRCLI OF INTEST, PART UNSP, W/O PERF OR ABSCESS W/O BLEED SNOMED Code(s): 805871060 (2) Colovesical fistula Current Visit: Yes Status: Acute Code(s): N32.1 - VESICOINTESTINAL FISTULA SNOMED Code(s): 35273696
[2019-12-31 16:50] LABS: Glucose,Whole Blood 145 mg/dL (75-99)
[2019-12-31 20:10] LABS: Glucose,Whole Blood 159 mg/dL (75-99)
[2019-12-31] MEDS: ROPIVACAINE 250 MG, HYDROMORPHONE (PF) 5 MG in SODIUM CHLORIDE 0.9% 200 ML EPIDURAL PRN (22:43)
[2020-01-01 06:18] LABS: Basophils # (A) 0.1 k/uL (0-0.2); Basophils % (A) 0 %; Eosinophils # (A) 0.1 k/uL (0-0.7); Eosinophils % (A) 1 %; HCT 46.4 % (39.0-53.0); HGB 15.5 gm/dL (13.0-17.5); Lymphocytes # (A) 1.7 k/uL (1.0-4.8); Lymphocytes % (A) 11 %; MCH 31.2 pg (25.0-35.0); MCHC 33.4 g/dL (31.0-37.0); MCV 93.4 fL (80.0-100.0); Mean Platelet Volume 7.1; Monocytes # (A) 1.2 k/uL (0-1.0); Monocytes % (A) 8 %; Neutrophils # (A) 12.3 k/uL (1.3-7.7); Neutrophils % (A) 79 %; Platelet Count 157 k/uL (150-450); RBC 4.97 m/uL (4.30-5.90); RDW 12.5 % (11.5-15.5); WBC 15.5 k/uL (3.8-10.6)
[2020-01-01 06:56] LABS: Glucose,Whole Blood 108 mg/dL (75-99)
[2020-01-01] MEDS: LACTATED RINGERS 1,000 ML IV SCH ×3 (07:15→20:52)
[2020-01-01] MEDS: INSULIN ASPART (NovoLOG) 100 UNIT/ML VIAL SQ SCH ×4 (07:16→20:32)
[2020-01-01] MEDS: ALVIMOPAN 12 MG CAPSULE PO SCH ×2 (08:22→20:32)
[2020-01-01] MEDS: FAMOTIDINE 20 MG/2 ML VIAL IV SCH ×2 (08:22→20:32)
[2020-01-01] MEDS: TAMSULOSIN 0.4 MG CAP.ER.24H PO SCH (08:23)
[2020-01-01] MEDS: LOSARTAN 50 MG TAB PO SCH (08:23)
[2020-01-01] MEDS: D5-0.45% NACL WITH KCL 20MEQ/L 1,000 ML IV SCH (08:23)
[2020-01-01] MEDS: HEPARIN SODIUM,PORCINE 5,000 UNIT/ML 1 ML VIAL SQ SCH ×3 (08:23→23:14)
[2020-01-01] MEDS ORDERED: METOPROLOL SUCCINATE (ER) 25 MG TAB.ER.24H PO SCH (09:00)
[2020-01-01 11:39] LABS: Glucose,Whole Blood 135 mg/dL (75-99)
--- NOTE | 2020-01-01 12:47 | P.PN ---
Subjective Progress Note Date: 01/01/20 59-year-old male patient history of bladder tumors treated with chemotherapy to bladder, admitted to the hospital with colovesical fistula. Patient underwent colonoscopy followed by elective lower anterior sigmoid resection on 12/[address] nash, does not have ostomy site. Sheridan catheter remains in place at this time. Patient is yet to pass gas or had bowel movement. Blood pressure stable postoperatively, he has not be bradycardic, takes metoprolol at home which has been decreased to 25 mg. We'll check EKG, no known history of arrhythmia. Afebrile. Postoperative WBC 17.0, most likely reactive secondary to surgery as there is no evidence of acute infection. Has lumbar epidural for analgesia po stop. 01/01/2020 Patient seen sitting up in chair, appears no acute distress. Continues to be bradycardic, metoprolol decreased to 25 mg yesterday, her is currently 54 we'll discontinue metoprolol and increased dose of losartan. He is controlled, has epidural in place. Hemodynamically stable, afebrile. Tolerating oral intake on clear liquids, will decrease IV fluids. Review Of Systems: Constitutional: No fever, no chills, no night sweats. Lungs: No shortness of breath, cough, no sputum production. No wheezing. Cardiovascular: No chest pain, no lower extremity edema. Abdominal: . Incisional pain Genitourinary: No dysuria, increased frequency, urgency. No urinary retention. Objective - Vital Signs Vital signs: Vital Signs Temp 97.6 F 01/01/20 07:00 Pulse 54 L 01/01/20 07:00 Resp 18 01/01/20 07:00 BP 137/78 01/01/20 07:00 Pulse Ox 95 01/01/20 07:00 Intake & Output 12/31/19 01/01/20 01/01/20 18:59 06:59 18:59 Intake Total 1080 2083.083 Output Total 1200 Balance 1080 883.083 Intake: Intake, IV Titration 2083.083 Amount D5-0.45% NaCl with KCl 2000 20Meq/l 1,000 ml @ 125 mls/hr IV .Q8H [facility] Rx#: [id number] Ropivacaine 250 mg 83.083 Hydromorphone (Pf) 5 mg In Sodium Chloride 0.9% 200 ml @ Per Protocol EPIDURAL .Q0M PRN Rx#: [id number] Oral 1080 Output: Urine 1200 Other: Voiding Method Indwelling Catheter Indwelling Catheter Indwelling Catheter - Exam HEENT: Head is atraumatic, normocephalic. Pupils equal, round. Sclerae is anicteric. NECK: Supple. No JVD. No lymphadenopathy. No thyromegaly. LUNGS: Clear to auscultation. No wheezes or rhonchi. No intercostal retr actions. HEART: Regular rate and rhythm. No murmur. ABDOMEN: Soft. Bowel sounds are sluggish. No masses. No tenderness. EXTREMITIES: No pedal edema. No calf tenderness. NEUROLOGICAL: Patient is awake, alert and oriented x3. Cranial nerves 2 through 12 are grossly intact. - Labs CBC & Chem 7: 01/01/20 05:53 12/30/19 15:28 Labs: Abnormal Lab Results - Last 24 Hours (Table) 12/31/19 12/31/19 01/01/20 Range/Units 16:48 20:08 05:53 WBC 15.5 H (3.8-10.6) k/uL Neutrophils # 12.3 H (1.3-7.7) k/uL Monocytes # 1.2 H (0-1.0) k/uL POC Glucose (mg/dL) 145 H 159 H (75-99) mg/dL 01/01/20 01/01/20 Range/Units 06:55 11:37 WBC (3.8-10.6) k/uL Neutrophils # (1.3-7.7) k/uL Monocytes # (0-1.0) k/uL POC Glucose (mg/dL) 108 H 135 H (75-99) mg/dL Assessment and Plan Plan: Assessment and Plan -Colovesical fistula most probably secondary due to past history of chemotherapy for bladder tumors: Day 1 postop following or anterior sigmoid resection, no ostomy site. Epidural in place for postoperative pain management. -Leukocytosis: Most probably reactive secondary to surgery, no evidence of acute infection -Asymptomatic bradycardia: Discontinue metoprolol and increased dose of losartan -Type 2 diabetes mellitus: Using oral agents at home including metformin, we will use insulin sliding scale -BPH: Continue home dose of Flomax, Sheridan catheter remains in place at this time. -Hypertension: Losartan increased to 50, but will discontinue due to bradycardia DVT prophylaxis per primary team-
[2020-01-01 13:27] LABS: Hemoglobin A1C 5.5 % (4.0-6.0)
[2020-01-01 16:44] LABS: Glucose,Whole Blood 105 mg/dL (75-99)
--- NOTE | 2020-01-01 17:51 | P.PN ---
Subjective Progress Note Date: 01/01/20 CHIEF COMPLAINT: Diverticulitis HISTORY OF PRESENT ILLNESS: The patient is a 59-year-old male status post sigmoid colectomy for diverticulitis. Patient is status post sigmoid colectomy. He is sitting up at bedside. Sheridan catheter including epidural in place. No passage of flatus. "I feel it coming." Pain is well-controlled. ROS: No reports of nausea and vomiting. No bowel movements. No fevers or chills. No new chest pain. No productive sputum PHYSICAL EXAM: VITAL SIGNS: Reviewed CONSTITUTIONAL: Well developed and in no acute distress. EYES: Conjuctivae without sclera icterus. Extraocular movements grossly intact. HEAD, EARS, NOSE, THROAT: Moist buccal mucosa. Head is atraumatic, n ormocephalic. Hears conversational speech. No nasal drainage. NECK: Supple. No thyroidomegaly. RESPIRATORY: Non-labored respirations and equal bilateral excursions. CARDIOVASCULAR: Palpable 2+ radial pulses. Regular rate. Regular rhythm. ABDOMEN: Incisions clean dry and intact. MUSCULOSKELETAL: No gross deformity of the lower extremities noted. No clubbing. No cyanosis. SKIN: Good skin turgor. Well perfused. NEUROLOGIC: Cranial nerves II through XII grossly intact. No focal or latera lizing signs. PSYCH: Appropriate affect. Alert and oriented to person, place and time. CLINICAL LABS: White blood cell count elevated over 17,000 improved over 15,000. ASSESSMENT: 1. Diverticulitis with colovesical fistula PLAN: 1. Await bowel function. 2. Ambulation encouraged Objective - Vital Signs Vital signs: Vital Signs Temp 98.6 F 01/01/20 14:31 Pulse 54 L 01/01/20 14:31 Resp 20 01/01/20 14:31 BP 132/73 01/01/20 14:31 Pulse Ox 96 01/01/20 14:31 Intake & Output 12/31/19 01/01/20 01/01/20 18:59 06:59 18:59 Intake Total 1080 2083.083 540 Output Total 1200 Balance 1080 883.083 540 Intake: Intake, IV Titration 2083.083 Amount D5-0.45% NaCl with KCl 2000 20Meq/l 1,000 ml @ 125 mls/hr IV .Q8H [facility] Rx#: [id number] Ropivacaine 250 mg 83.083 Hydromorphone (Pf) 5 mg In Sodium Chloride 0.9% 200 ml @ Per Protocol EPIDURAL .Q0M PR[facility] Rx#: [id number] Oral 1080 540 Output: Urine 1200 Other: Voiding Method Indwelling Catheter Indwelling Catheter Indwelling Catheter - Labs CBC & Chem 7: 01/01/20 05:53 12/30/19 15:28 Labs: Abnormal Lab Results - Last 24 Hours (Table) 12/31/19 01/01/20 01/01/20 Range/Units 20:08 05:53 06:55 WBC 15.5 H (3.8-10.6) k/uL Neutrophils # 12.3 H (1.3-7.7) k/uL Monocytes # 1.2 H (0-1.0) k/uL POC Glucose (mg/dL) 159 H 108 H (75-99) mg/dL 01/01/20 01/01/20 Range/Units 11:37 16:42 WBC (3.8-10.6) k/uL Neutrophils # (1.3-7.7) k/uL Monocytes # (0-1.0) k/uL POC Glucose (mg/dL) 135 H 105 H (75-99) mg/dL Assessment and Plan (1) Diverticulitis Current Visit: Yes Status: Acute Code(s): K57.92 - DVTRCLI OF INTEST, PART UNSP, W/O PERF OR ABSCESS W/O BLEED SNOMED Code(s): 091454923 (2) Colovesical fistula Current Visit: Yes Status: Acute Code(s): N32.1 - VESICOINTESTINAL FISTULA SNOMED Code(s): 27724069
[2020-01-01 20:05] LABS: Glucose,Whole Blood 147 mg/dL (75-99)
--- NOTE | 2020-01-01 23:00 | P.PN ---
Progress Note - Text Progress Note Date: 01/01/20 POD #2, s/p Sub-total colectomy. Patient doing well, epidural catheter infusing at 5cc/hr with good analgesia. No side effects noted. Site looks ok, without signs of infection or inflammation. Will continue current care, and plan on DC of epidural catheter in am. Discussed with nursing, who will contact Surgery to obtain alternative pain Rx orders upon removal of epidural catheter.
[2020-01-02 06:19] LABS: Basophils # (A) 0.1 k/uL (0-0.2); Basophils % (A) 1 %; Eosinophils # (A) 0.2 k/uL (0-0.7); Eosinophils % (A) 2 %; HCT 47.7 % (39.0-53.0); HGB 16.2 gm/dL (13.0-17.5); Lymphocytes # (A) 1.6 k/uL (1.0-4.8); Lymphocytes % (A) 15 %; MCH 31.3 pg (25.0-35.0); MCHC 34.1 g/dL (31.0-37.0); Mean Platelet Volume 7.1; Monocytes # (A) 0.9 k/uL (0-1.0); Monocytes % (A) 8 %; Neutrophils # (A) 7.7 k/uL (1.3-7.7); Neutrophils % (A) 73 %; Platelet Count 149 k/uL (150-450); RBC 5.18 m/uL (4.30-5.90); RDW 12.2 % (11.5-15.5); WBC 10.6 k/uL (3.8-10.6)
--- NOTE | 2020-01-02 06:26 | P.PN ---
Progress Note - Text Progress Note Date: 01/02/20
[2020-01-02 06:57] LABS: Glucose,Whole Blood 125 mg/dL (75-99)
[2020-01-02] MEDS: INSULIN ASPART (NovoLOG) 100 UNIT/ML VIAL SQ SCH ×4 (07:12→20:45)
[2020-01-02] MEDS: ALVIMOPAN 12 MG CAPSULE PO SCH ×2 (08:11→21:18)
[2020-01-02] MEDS: TAMSULOSIN 0.4 MG CAP.ER.24H PO SCH (08:11)
[2020-01-02] MEDS: LOSARTAN 50 MG TAB PO SCH (08:11)
[2020-01-02] MEDS: HEPARIN SODIUM,PORCINE 5,000 UNIT/ML 1 ML VIAL SQ SCH ×2 (08:11→16:48)
[2020-01-02] MEDS: FAMOTIDINE 20 MG/2 ML VIAL IV SCH ×2 (08:11→21:18)
--- NOTE | 2020-01-02 10:20 | P.PN ---
<Teresa Box - Last Filed: 01/02/20 10:15> Subjective Progress Note Date: 01/02/20 CHIEF COMPLAINT: Colovesical fistula HISTORY OF PRESENT ILLNESS: Status post lower anterior sigmoid resection. Patient is scheduled for epidural and Sheridan catheter be removed today. Patient did report having some nausea after surgery that now has resolved. He denies any nausea or vomiting today. Denies any flatus or bowel movement. He is not reporting any pain at this time. He is afebrile. White count is down from 15.5-10.6. And he is currently on a clear liquid diet. PHYSICAL EXAM: VITAL SIGNS: Reviewed. GENERAL: Well-developed in no acute distress. HEENT: No sclera icterus. Extraocular movements grossly intact. Moist buccal mucosa. Head is atraumatic, normocephalic. ABDOMEN: Soft. Nondistended. Nontender. Patient dressing did have small areas of blood NEUROLOGIC: Alert and oriented. Cranial nerves II through XII grossly intact. ASSESSMENT: 1. Colovesical fistula status post low anterior sigmoid resection. Postop day #3 PLAN: -Patient is scheduled for epidural and Sheridan catheter to be removed today -Continue with pain medications as needed -Encourage patient to ambulate -Encourage patient to use incentive spirometer -GI prophylaxis Pepcid and DVT prophylaxis subcu heparin Physician Family Resource Management Professor note has been reviewed by physician. Signing provider agrees with the documented findings, assessment, and plan of care. Objective - Vital Signs Vital signs: Vital Signs Temp 98.5 F 01/02/20 07:00 Pulse 58 L 01/02/20 07:00 Resp 16 01/02/20 07:00 BP 128/76 01/02/20 07:00 Pulse Ox 95 01/02/20 07:00 Intake & Output 01/01/20 01/02/20 01/02/20 18:59 06:59 18:59 Intake Total 540 160 Output Total 4000 Balance 540 -3840 Intake: Intake, IV Titration 160 Amount D5-0.45% NaCl with KCl 160 20Meq/l 1,000 ml @ 125 mls/hr IV .Q8H [facility] Rx#: [id number] Oral 540 Output: Urine 4000 Other: Voiding Method Indwelling Catheter Indwelling Catheter Indwelling Catheter - Labs CBC & Chem 7: 01/02/20 05:59 12/30/19 15:28 Labs: Abnormal Lab Results - Last 24 Hours (Table) 01/01/20 01/01/20 01/01/20 Range/Units 11:37 16:42 20:04 Plt Count (150-450) k/uL POC Glucose (mg/dL) 135 H 105 H 147 H (75-99) mg/dL 01/02/20 01/02/20 Range/Units 05:59 06:55 Plt Count 149 L (150-450) k/uL POC Glucose (mg/dL) 125 H (75-99) mg/dL <Fabian Worthington - Last Filed: 01/02/20 11:12> Subjective As above. Patient doing well. Epidural and Sheridan catheter had been removed. He is having bowel movements. Will increase diet. Add oral and when necessary analgesics. Keep dressing in place. May shower Objective - Vital Signs Vital signs: Vital Signs Temp 98.5 F 01/02/20 07:00 Pulse 58 L 01/02/20 07:00 Resp 16 01/02/20 07:00 BP 128/76 01/02/20 07:00 Pulse Ox 95 01/02/20 07:00 Intake & Output 01/01/20 01/02/20 01/02/20 18:59 06:59 18:59 Intake Total 540 160 Output Total 4000 200 Balance 540 -3840 -200 Intake: Intake, IV Titration 160 Amount D5-0.45% NaCl with KCl 160 20Meq/l 1,000 ml @ 125 mls/hr IV .Q8H [facility] Rx#: [id number] Oral 540 Output: Urine 4000 200 Uretheral (Sheridan) 200 Other: Voiding Method Indwelling Catheter Indwelling Catheter Indwelling Catheter # Bowel Movements 1 - Labs CBC & Chem 7: 01/02/20 05:59 01/02/20 05:59 Labs: Abnormal Lab Results - Last 24 Hours (Table) 01/01/20 01/01/20 01/01/20 Range/Units 11:37 16:42 20:04 Plt Count (150-450) k/uL Glucose (70-110) mg/dL POC Glucose (mg/dL) 135 H 105 H 147 H (75-99) mg/dL 01/02/20 01/02/20 01/02/20 Range/Units 05:59 05:59 06:55 Plt Count 149 L (150-450) k/uL Glucose 114 H (70-110) mg/dL POC Glucose (mg/dL) 125 H (75-99) mg/dL Assessment and Plan (1) Colovesical fistula Current Visit: Yes Status: Acute Code(s): N32.1 - VESICOINTESTINAL FISTULA SNOMED Code(s): 00045287
[2020-01-02 10:55] LABS: African American GFR (CKD) 113.3 (60.0-200.0); Anion Gap 5.6 mmol/L (4.00-12.00); Carbon Dioxide 30.4 mmol/L (21.6-31.8); Non-African American GFR(CKD) 97.8 (60.0-200.0); Potassium 4.2 mmol/L (3.5-5.5)
[2020-01-02] MEDS ORDERED: HYDROcodone/APAP 5-325MG 1 EACH TAB PO PRN (11:04)
[2020-01-02 11:36] LABS: Glucose,Whole Blood 160 mg/dL (75-99)
[2020-01-02] MEDS: KETOROLAC 15 MG/ML 1 ML VIAL IVP SCH ×2 (12:16→17:43)
--- NOTE | 2020-01-02 16:12 | P.PN ---
Subjective Progress Note Date: 01/02/20 59-year-old male patient history of bladder tumors treated with chemotherapy to bladder, admitted to the hospital with colovesical fistula. Patient underwent colonoscopy followed by elective lower anterior sigmoid resection on 12/[address] nash, does not have ostomy site. Sheridan catheter remains in place at this time. Patient is yet to pass gas or had bowel movement. Blood pressure stable postoperatively, he has not be bradycardic, takes metoprolol at home which has been decreased to 25 mg. We'll check EKG, no known history of arrhythmia. Afebrile. Postoperative WBC 17.0, most likely reactive secondary to surgery as there is no evidence of acute infection. Has lumbar epidural for analgesia po stop. 01/01/2020 Patient seen sitting up in chair, appears no acute distress. Continues to be bradycardic, metoprolol decreased to 25 mg yesterday, her is currently 54 we'll discontinue metoprolol and increased dose of losartan. He is controlled, has epidural in place. Hemodynamically stable, afebrile. Tolerating oral intake on clear liquids, will decrease IV fluids. 01/02/2020 today in reevaluation patient doing well, epidural has been removed, having minimal pain. He has been up ambulating, passing gashad bowel movement since yesterday. Tolerating oral intake. Review Of Systems: Constitutional: No fever, no chills, no night sweats. Lungs: No shortness of breath, cough, no sputum production. No wheezing. Cardiovascular: No chest pain, no lower extremity edema. Abdominal: . Incisional pain Genitourinary: No dysuria, increased frequency, urgency. No urinary retention. Objective - Vital Signs Vital signs: Vital Signs Temp 97.9 F 01/02/20 14:37 Pulse 65 01/02/20 14:37 Resp 18 01/02/20 14:37 BP 148/73 01/02/20 14:37 Pulse Ox 97 01/02/20 14:37 Intake & Output 01/01/20 01/02/20 01/02/20 18:59 06:59 18:59 Intake Total 540 160 296 Output Total 4000 300 Balance 540 -3840 -4 Intake: Intake, IV Titration 160 Amount D5-0.45% NaCl with KCl 160 20Meq/l 1,000 ml @ 125 mls/hr IV .Q8H [facility] Rx#: [id number] Oral 540 296 Output: Urine 4000 300 Uretheral (Sheridan) 200 Other: Voiding Method Indwelling Catheter Indwelling Catheter Indwelling Catheter # Bowel Movements 1 - Exam HEENT: Head is atraumatic, normocephalic. Pupils equal, round. Sclerae is anicteric. NECK: Supple. No JVD. No lymphadenopathy. No thyromegaly. LUNGS: Clear to auscultation. No wheezes or rhonchi. No intercostal retractions. HEART: Regular rate and rhythm. No murmur. ABDOMEN: Soft. Bowel sounds are sluggish. No masses. No tenderness. EXTREMITIES: No pedal edema. No calf tenderness. NEUROLOGICAL: Patient is awake, alert and oriented x3. Cranial nerves 2 through 12 are grossly intact. 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 Epidural out, minimal pain. -Leukocytosis: Most probably reactive secondary to surgery, no evidence of acute infection -Asymptomatic bradycardia: continue losartan, metoprolol discontinued. -Type 2 diabetes mellitus: Using oral agents at home including metformin, we will use insulin sliding scale -BPH: Continue home dose of Flomax, Sheridan catheter remains in place at this time. -Hypertension: Losartan increased to 50, but will discontinue due to bradycardia DVT prophylaxis per primary team-
[2020-01-02 16:41] LABS: Glucose,Whole Blood 95 mg/dL (75-99)
[2020-01-02 20:28] LABS: Glucose,Whole Blood 103 mg/dL (75-99)
[2020-01-03] MEDS: HEPARIN SODIUM,PORCINE 5,000 UNIT/ML 1 ML VIAL SQ SCH (00:09)
[2020-01-03] MEDS: KETOROLAC 15 MG/ML 1 ML VIAL IVP SCH ×4 (00:09→19:08)
[2020-01-03] MEDS ORDERED: HEPARIN SODIUM,PORCINE 5,000 UNIT/ML 1 ML VIAL IV PRN (02:42)
[2020-01-03] MEDS ORDERED: HEPARIN SOD,PORK IN 0.45% NACL 25,000 UNIT in 0.45% NACL 1 250ML.BAG IV SCH (02:45)
[2020-01-03] MEDS ORDERED: DILTIAZEM 125 MG in SODIUM CHLORIDE 0.9% 100 ML IV SCH (03:00)
[2020-01-03] MEDS: LACTATED RINGERS 1,000 ML IV SCH (03:15)
[2020-01-03 06:23] LABS: Glucose,Whole Blood 127 mg/dL (75-99)
[2020-01-03] MEDS: INSULIN ASPART (NovoLOG) 100 UNIT/ML VIAL SQ SCH ×4 (06:57→20:50)
[2020-01-03] MEDS: FAMOTIDINE 20 MG/2 ML VIAL IV SCH ×2 (08:23→20:51)
[2020-01-03] MEDS: LOSARTAN 50 MG TAB PO SCH (08:24)
[2020-01-03] MEDS: TAMSULOSIN 0.4 MG CAP.ER.24H PO SCH (08:24)
[2020-01-03] MEDS: METOPROLOL TARTRATE 50 MG TAB PO SCH ×2 (09:52→20:51)
[2020-01-03 11:08] VITALS: BMI 32.7
[2020-01-03] MEDS ORDERED: METOPROLOL TARTRATE 25 MG TAB PO STA ×2 (11:10→11:25)
--- NOTE | 2020-01-03 11:13 | P.PN ---
Subjective 59-year-old male patient history of bladder tumors treated with chemotherapy to bladder, admitted to the hospital with colovesical fistula. Patient underwent colonoscopy followed by elective lower anterior sigmoid resection on 12/[address] nash, does not have ostomy site. Sheridan catheter remains in place at this time. Patient is yet to pass gas or had bowel movement. Blood pressure stable postoperatively, he has not be bradycardic, takes metoprolol at home which has been decreased to 25 mg. We'll check EKG, no known history of arrhythmia. Afebrile. Postoperative WBC 17.0, most likely reactive secondary to surgery as there is no evidence of acute infection. Has lumbar epidural for analgesia postop. 01/01/2020 Patient seen sitting up in chair, appears no acute distress. Continues to be bradycardic, metoprolol decreased to 25 mg yesterday, her is currently 54 we'll discontinue metoprolol and increased dose of losartan. He is controlled, has epidural in place. Hemodynamically stable, afebrile. Tolerating oral intake on clear liquids, will decrease IV fluids. 01/02/2020 today in reevaluation patient doing well, epidural has been removed, having minimal pain. He has been up ambulating, passing gashad bowel movement since yesterday. Tolerating oral intake. 01/03/2020 Patient went into atrial fibrillation with rapid ventricular rate patient was subsequently transferred to cardiac care unit. Presently his heart rate is still high and presented patient on Cardizem was resumed on his metoprolol his metoprolol was discontinued yesterday because of the sinus bradycardia. Echocardiogram is being obtained. Constitutional: Denied any fatigue denied any fever. Cardio vascular: denied any chest pain, palpitations Gastrointestinal denied any nausea vomiting Pulmonary: Denied any shortness of breath cough Neurologic denied any new focal deficits All inpatient medications were reviewed and appropriate changes in these medications as dictated in the interval history and assessment and plan. Objective - Vital Signs Vital signs: Vital Signs Temp 98.1 F 01/03/20 08:00 Pulse 113 H 01/03/20 08:00 Resp 18 01/03/20 08:00 BP 113/66 01/03/20 08:00 Pulse Ox 92 L 01/03/20 08:00 Intake & Output 01/02/20 01/03/20 01/03/20 18:59 06:59 18:59 Intake Total 532 300 427 Output Total 700 400 200 Balance -168 -100 227 Weight 100.516 kg 100.516 kg Intake: Intake, IV Titration 67 Amount Heparin Sod,Pork in 0.45% 67 NaCl 25,000 unit In 0.45 % NaCl 1 250ml.bag @ 10 UNITS/KG/HR 10 mls/hr IV .Q24H [facility] Rx#:[id number] Oral 532 300 360 Output: Urine 700 400 200 Uretheral (Sheridan) 200 Other: Voiding Method Indwelling Catheter Toilet Urinal # Voids 3 # Bowel Movements 1 - Exam PHYSICAL EXAMINATION: GENERAL: The patient is alert and oriented x3, not in any acute distress. Well developed, well nourished. HEENT: Pupils are round and equally reacting to light. EOMI. No scleral icterus. No conjunctival pallor. Normocephalic, atraumatic. No pharyngeal erythema. No thyromegaly. CARDIOVASCULAR: S1 and S2 present. No murmurs, rubs, or gallops. Patient has irregularly irregular rhythm with the increased heart rate. PULMONARY: Chest is clear to auscultation, no wheezing or crackles. ABDOMEN: Soft, nontender, nondistended, normoactive bowel sounds. No palpable organomegaly. MUSCULOSKELETAL: No joint swelling or deformity. EXTREMITIES: No cyanosis, clubbing, or pedal edema. NEUROLOGICAL: Gross neurological examination did not reveal any focal deficits. SKIN: No rashes. 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 Epidural out, minimal pain. -Leukocytosis: Most probably reactive secondary to surgery, no evidence of acute infection New-onset atrial fibrillation with rapid and regular rate patient will be sta rted on anti-correlation patient heart rate is still high patient is presently on Cardizem echocardiogram is being obtained and patient was resumed on his metoprolol -Type 2 diabetes mellitus: Using oral agents at home including metformin, we will use insulin sliding scale -BPH: Continue home dose of Flomax, Sheridan catheter remains in place at this time. -Hypertension: Losartan increased to 50, but will discontinue due to bradycardia DVT prophylaxis per primary team-
--- NOTE | 2020-01-03 11:18 | P.CRDCN ---
History of Present Illness Consult date: 01/03/20 History of present illness: CHIEF COMPLAINT: A. fib with RVR HISTORY OF PRESENT ILLNESS: This is a 59-year old male with a past medical history significant for hypertension and diabetes mellitus. patient does not follow with a investment trader. We have been asked to see the patient in consultation for new-onset atrial fibrillation. Patient is status post low anterior resection with Dr. Worthington secondary to colovesicular fistula. Postoperative day #4. Overnight, patient went into A. fib with RVR. patient examined this might bedside. He remains in atrial fibrillation with RVR up to the 150s. He is on a Cardizem drip at 10 mg an hour. He is also on a IV heparin drip. He denies chest pain or pressure. Denies shortness of breath. Denies palpitations. DIAGNOSTICS: EKG reveals A. fib with RVR Laboratory data: WBC 10.6. Hemoglobin 16.2. Platelet count 149. Sodium 139. Potassium 4.2. BUN 12. Creatinine 0.8. Current home cardiac medications include Toprol-XL 50 mg daily, aspirin 81 mg daily, and Cozaar 50 mg daily REVIEW OF SYSTEMS: At the time of my exam: CONSTITUTIONAL: Denies fever or chills. HEENT: Denies blurred vision, vision changes, or eye pain. Denies hemoptysis CARDIOVASCULAR: Denies chest pain, orthopnea, PND or palpitations RESPIRATORY: No shortness of breath. GASTROINTESTINAL: Denies abdominal pain. Denies nausea or vomiting. HEMATOLOGIC: Denies bleeding disorders. GENITOURINARY: Denies any blood in urine. SKIN: Denies pruitis. Denies rash. PHYSICAL EXAM: VITAL SIGNS: Reviewed. GENERAL: Well-developed in no acute distress. HEENT: Head is normocephalic. Pupils are equal, round. Sclerae anicteric. Mucous membranes of the mouth are moist. Neck supple. No JVD or thyromegaly LUNGS: Respirations even and unlabored. Lungs essentially clear to auscultation bilaterally. HEART: Tachycardic. Irregular rate and rhythm. S1 and S2 heard. ABDOMEN: Soft. Nondistended. Nontender. EXTREMITIES: Normal range of motion. No clubbing or cyanosis. Peripheral pulses intact. No lower extremity edema NEUROLOGIC: Awake and alert. Oriented x 3. ASSESSMENT: New-onset atrial fibrillation with RVR Colovesicular fistula, status post low anterior resection Hypertension Diabetes mellitus, type II Obesity: BMI 32.7 History of nicotine dependence, in remission PLAN: Resume Metoprolol. Change to Metoprolol Tartrate 50mg BID. Case management consulted for insurance coverage for Eliquis Continue cardizem drip while heart rate uncontrolled Check TSH Obtain 2-D echo to assess cardiac structure and function Nurse practitioner note has been reviewed by physician. Signing provider agrees with the documented findings, assessment, and plan of care. Past Medical History Past Medical History: Cancer, Hypertension, Prostate Disorder Additional Past Medical History / Comment(s): HX OF POLYPS, BLADDER TUMORS WITH CHEMO TO BLADDER (MITOMYCIN- LAST RECEIVED APPROX 2014) History of Any Multi-Drug Resistant Organisms: None Reported Past Surgical History: Hernia Repair Additional Past Surgical History / Comment(s): HERNIA (AGE 16), sx to remove BLADDER TUMORS. Past Anesthesia/Blood Transfusion Reactions: No Reported Reaction Smoking Status: Former smoker - Past Family History Mother Family Medical History: No Reported History Medications and Allergies Home Medications Medication Instructions Recorded Confirmed Type Aspirin EC [Ecotrin Low Dose] 81 mg PO DAILY 12/26/19 12/30/19 History Canagliflozin/Metformin HCl 1 each PO QAM 12/26/19 12/30/19 History [Invokamet 150-1,000 mg Tablet] Celecoxib [CeleBREX] 200 mg PO DAILY 12/26/19 12/30/19 History Cholecalciferol [Vitamin D3 (25 5,000 unit PO DAILY 12/26/19 12/30/19 History Mcg = 1000 Iu)] Losartan [Cozaar] 50 mg PO QAM 12/26/19 12/30/19 History Metoprolol Succinate [Toprol XL] 50 mg PO QAM 12/26/19 12/30/19 History Omeprazole 40 mg PO DAILY 12/26/19 12/30/19 History Tamsulosin [Flomax] 0.4 mg PO DAILY 12/26/19 12/30/19 History Apixaban [Eliquis] 5 mg PO BID #60 tab 01/03/20 Rx Allergies Allergy/AdvReac Type Severity Reaction Status Date / Time tolmetin [From Tolectin] Allergy Unknown Rash/Hives Verified 12/30/19 08:45 Physical Exam Vitals: Vital Signs Temp Pulse Resp BP BP BP Pulse Ox 01/03/20 08:00 98.1 F 113 H 18 113/66 92 L 01/03/20 04:00 98.5 F 147 H 18 133/85 95 01/03/20 01:15 98.4 F 155 H 20 111/72 01/02/20 19:00 98.5 F 64 20 143/79 96 01/02/20 14:37 97.9 F 65 18 148/73 97 Intake and Output 01/02/20 01/03/20 01/03/20 22:59 06:59 14:59 Intake Total 536 427 Output Total 400 400 200 Balance 136 -400 227 Intake: Intake, IV Titration 67 Amount Heparin Sod,Pork in 0.45% 67 NaCl 25,000 unit In 0.45 % NaCl 1 250ml.bag @ 10 UNITS/KG/HR 10 mls/hr IV .Q24H [facility] Rx#:[id number] Oral 536 360 Output: Urine 400 400 200 Other: Voiding Method Toilet Urinal # Voids 3 3 Weight 100.516 kg 100.516 kg Results 01/02/20 05:59 01/02/20 05:59 Coagulation 01/03/20 Range/Units 06:30 APTT 41.6 H (22.0-30.0) sec Current Medications Generic Name Dose Route Start Last Admin Trade Name Freq PRN Reason Stop Dose Admin Hydrocodone Bitart/Acetaminophen 1 each 01/02/20 11:04 01/02/20 21:18 Hydrocodone/Apap 5-325mg 1 Each Tab PO 1 each Q6HR PRN Administration Pain Alvimopan 12 mg 12/31/19 09:00 01/02/20 21:18 Alvimopan 12 Mg Capsule PO 01/06/20 21:01 12 mg BID YUNIEL Administration Apixaban 5 mg 01/03/20 11:15 Apixaban 5 Mg Tab PO BID YUNIEL Famotidine 20 mg 12/30/19 21:00 01/03/20 08:23 Famotidine 20 Mg/2 Ml Vial IV 20 mg BID YUNIEL Administration Heparin Sodium (Porcine) 0 unit 01/03/20 02:42 01/03/20 09:52 Heparin Sodium,Porcine 5,000 Unit/Ml 1 Ml Vial IV 2,500 unit PER PROTOCOL PRN Administration Low PTT Protocol Hydromorphone HCl 1 mg 12/30/19 12:27 Hydromorphone 1 Mg/Ml 1 Ml Syringe IVP Q3HR PRN Severe Pain Lactated Ringer's 1,000 mls @ 20 mls/hr 12/30/19 05:43 01/03/20 03:15 Lactated Ringers IV 20 mls/hr .Q24H [facility] Administration Ropivacaine 250 mg/ 250 mls @ 0 mls/hr 12/30/19 10:32 12/31/19 22:43 Hydromorphone HCl 5 mg/ Sodium EPIDURAL 5 mls/hr Chloride .Q0M PRN Administration Pain Control Protocol Per Protocol Diltiazem HCl 125 mg/ Sodium 125 mls @ 10 mls/hr 01/03/20 03:00 01/03/20 03:16 Chloride IV 10 mg/hr .[id number] YUNIEL 10 mls/hr Administration 10 MG/HR Insulin Aspart 0 unit 12/30/19 21:00 01/03/20 06:57 Insulin Aspart (Novolog) 100 Unit/Ml Vial SQ Not Given ACHS [facility] Protocol Ketorolac Tromethamine 15 mg 01/02/20 12:00 01/03/20 06:57 Ketorolac 15 Mg/Ml 1 Ml Vial IVP 01/05/20 11:04 15 mg Q6HR [facility] Administration Lidocaine HCl 0.1 ml 12/30/19 05:43 Lidocaine 1% (10mg/Ml) For Iv Start INTRADERMA PER PROTOCOL PRN IV Start Metoclopramide HCl 10 mg 12/30/19 12:27 12/31/19 07:51 Metoclopramide 5 Mg/Ml 2 Ml Vial IVP 10 mg Q6HR PRN Administration Nausea and Vomiting Metoprolol Tartrate 50 mg 01/03/20 09:45 01/03/20 09:52 Metoprolol Tartrate 50 Mg Tab PO 50 mg BID Y[facility]EL Administration Metoprolol Tartrate 25 mg 01/03/20 11:10 Metoprolol Tartrate 25 Mg Tab PO 01/03/20 11:11 ONCE STA Naloxone HCl 0.2 mg 12/30/19 10:32 Naloxone 0.4 Mg/Ml 1 Ml Vial IV Q2M PRN Opioid Reversal Ondansetron HCl 4 mg 12/30/19 12:27 Ondansetron 4 Mg/2 Ml Vial IVP Q8HR PRN Nausea And Vomiting Tamsulosin HCl 0.4 mg 12/31/19 09:00 01/03/20 08:24 Tamsulosin 0.4 Mg Cap.Er.24h PO 0.4 mg DAILY YUNIEL Administration Intake and Output 01/02/20 01/03/20 01/03/20 22:59 06:59 14:59 Intake Total 536 427 Output Total 400 400 200 Balance 136 -400 227 Intake: Intake, IV Titration 67 Amount Heparin Sod,Pork in 0.45% 67 NaCl 25,000 unit In 0.45 % NaCl 1 250ml.bag @ 10 UNITS/KG/HR 10 mls/hr IV .Q24H [facility] Rx#:[id number] Oral 536 360 Output: Urine 400 400 200 Other: Voiding Method Toilet Urinal # Voids 3 3 Weight 100.516 kg 100.516 kg Patient Weight 01/04/20 06:59 Weight 100.516 kg 01/02/20 05:59 01/02/20 05:59
[2020-01-03 11:35] LABS: Glucose,Whole Blood 136 mg/dL (75-99)
--- NOTE | 2020-01-03 12:18 | ECHOF ---
Referral Reason:new onset afib MEASUREMENTS -------- HEIGHT: 177.8 cm WEIGHT: 100.2 kg BP: RVIDd: 2.8 cm (< 3.3) IVSd: 1.1 cm (0.6 - 1.1) LVIDd: 3.8 cm (3.9 - 5.3) LVPWd: 1.1 cm (0.6 - 1.1) IVSs: 1.6 cm LVIDs: 2.0 cm LVPWs: 1.6 cm LAESV Index (A-L): 26.88 ml/m Ao Diam: 2.5 cm (2.0 - 3.7) AV Cusp: 1.9 cm (1.5 - 2.6) LA Diam: 3.0 cm (2.7 - 3.8) RAP: 5.00 mmHg RVSP: 29.40 mmHg FINDINGS -------- Atrial fibrillation. This was a technically difficult study with suboptimal views. The left ventricular size is normal. Left ventricular wall thickness is normal. Overall left vent ricular systolic function is low-normal with, an EF between 50 - 55 %. Left ventricular fillimg pre ssure cannot be estimated due to Atrial fibrillation. The right ventricle is normal in size. Normal LA size by volume 22+/-6 ml/m2. The right atrial size is normal. Lumason used The aortic valve is trileaflet, and appears structurally normal. No aortic stenosis or regurgitation. The mitral valve is normal. There is trace mitral regurgitation. The tricuspid valve appears structurally normal. Trace tricuspid regurgitation present. Right scott tricular systolic pressure is normal at < 35 mmHg. The pulmonic valve was not well visualized. There is no pulmonic regurgitation present. The aortic root size is normal. Normal inferior vena cava with normal inspiratory collapse consistent with estimated right atrial pre ssure of 5 mmHg. There is no pericardial effusion. CONCLUSIONS -------- 1. Left ventricular wall thickness is normal. 2. Overall left ventricular systolic function is low-normal with, an EF between 50 - 55 %. 3. Normal LA size by volume 22+/-6 ml/m2. 4. The aortic valve is trileaflet, and appears structurally normal. No aortic stenosis or regurgitati on. 5. There is trace mitral regurgitation. 6. Trace tricuspid regurgitation present. 7. There is no pericardial effusion. BILINGUAL [employer]ERGARTEN TEACHER: Yvonne Noyola RDCS
[2020-01-03] MEDS: APIXABAN 5 MG TAB PO SCH ×2 (12:44→20:51)
[2020-01-03] MEDS: ALVIMOPAN 12 MG CAPSULE PO SCH ×2 (12:46→20:50)
--- NOTE | 2020-01-03 14:26 | P.PN ---
<Teresa Box - Last Filed: 01/03/20 14:21> Subjective Progress Note Date: 01/03/20 CHIEF COMPLAINT: Colovesical fistula HISTORY OF PRESENT ILLNESS: Status post lower anterior sigmoid resection. Patient went into a new onset of atrial fibrillation with rapid ventricular response. He required transfer to the telemetry floor. He is been seen by cardiology. He was placed on a Cardizem drip. They have given metoprolol as well. Patient remains on Cardizem drip and has converted to sinus rhythm. He denies any chest pain or shortness of breath. Echo shows an EF of 50-55%. Cardiology has started patient on Eliquis. Patient denies any abdominal pain. Denies any nausea or vomiting. Reports having flatus and bowel movement. He is afebrile. TSH 1.760 PHYSICAL EXAM: VITAL SIGNS: Reviewed. GENERAL: Well-developed in no acute distress. HEENT: No sclera icterus. Extraocular movements grossly intact. Moist buccal mucosa. Head is atraumatic, normocephalic. ABDOMEN: Soft. Nondistended. Nontender. Patient dressing did have small areas of blood NEUROLOGIC: Alert and oriented. Cranial nerves II through XII grossly intact. ASSESSMENT: 1. Colovesical fistula status post low anterior sigmoid resection. Postop day #4 2. New onset of atrial fibrillation with rapid ventricular response PLAN: -Patient cardiology recommendations -Advance diet to regular, low fiber diet at dinner -Continue with pain medications as needed -Encourage patient to use incentive spirometer -GI prophylaxis Pepcid and DVT prophylaxis subcu heparin Physician Respiratory Technician note has been reviewed by physician. Signing provider agrees with the documented findings, assessment, and plan of care. Objective - Vital Signs Vital signs: Vital Signs Temp 98.1 F 01/03/20 12:00 Pulse 55 L 01/03/20 12:00 Resp 18 01/03/20 12:00 BP 101/57 01/03/20 12:00 Pulse Ox 93 L 01/03/20 12:00 Intake & Output 01/02/20 01/03/20 01/03/20 18:59 06:59 18:59 Intake Total 532 300 427 Output Total 700 400 200 Balance -168 -100 227 Weight 100.516 kg 100.516 kg Intake: Intake, IV Titration 67 Amount Heparin Sod,Pork in 0.45% 67 NaCl 25,000 unit In 0.45 % NaCl 1 250ml.bag @ 10 UNITS/KG/HR 10 mls/hr IV .Q24H [facility] Rx#:[id number] Oral 532 300 360 Output: Urine 700 400 200 Uretheral (Sheridan) 200 Other: Voiding Method Indwelling Catheter Toilet Urinal # Voids 3 # Bowel Movements 1 - Labs CBC & Chem 7: 01/02/20 05:59 01/02/20 05:59 Labs: Abnormal Lab Results - Last 24 Hours (Table) 01/02/20 01/03/20 01/03/20 Range/Units 20:16 06:22 06:30 APTT 41.6 H (22.0-30.0) sec POC Glucose (mg/dL) 103 H 127 H (75-99) mg/dL 01/03/20 Range/Units 11:32 APTT (22.0-30.0) sec POC Glucose (mg/dL) 136 H (75-99) mg/dL <Fabian Worthington - Last Filed: 01/03/20 16:03> Subjective As above. Patient doing well. Episode of A. fib seems to have resolved. Will advance diet. Possible discharge tomorrow. Objective - Vital Signs Vital signs: Vital Signs Temp 98.4 F 01/03/20 15:54 Pulse 55 L 01/03/20 15:54 Resp 17 01/03/20 15:54 BP 115/73 01/03/20 15:54 Pulse Ox 94 L 01/03/20 15:54 Intake & Output 01/02/20 01/03/20 01/03/20 18:59 06:59 18:59 Intake Total 532 300 427 Output Total 700 400 200 Balance -168 -100 227 Weight 100.516 kg 100.516 kg Intake: Intake, IV Titration 67 Amount Heparin Sod,Pork in 0.45% 67 NaCl 25,000 unit In 0.45 % NaCl 1 250ml.bag @ 10 UNITS/KG/HR 10 mls/hr IV .Q24H [facility] Rx#:[id number] Oral 532 300 360 Output: Urine 700 400 200 Uretheral (Sheridan) 200 Other: Voiding Method Indwelling Catheter Toilet Urinal # Voids 3 5 # Bowel Movements 1 2 - Labs CBC & Chem 7: 01/02/20 05:59 01/02/20 05:59 Labs: Abnormal Lab Results - Last 24 Hours (Table) 01/02/20 01/03/20 01/03/20 Range/Units 20:16 06:22 06:30 APTT 41.6 H (22.0-30.0) sec POC Glucose (mg/dL) 103 H 127 H (75-99) mg/dL 01/03/20 Range/Units 11:32 APTT (22.0-30.0) sec POC Glucose (mg/dL) 136 H (75-99) mg/dL Assessment and Plan (1) Colovesical fistula Current Visit: Yes Status: Acute Code(s): N32.1 - VESICOINTESTINAL FISTULA SNOMED Code(s): 34842988
[2020-01-03 16:45] LABS: Glucose,Whole Blood 115 mg/dL (75-99)
[2020-01-03 20:29] LABS: Glucose,Whole Blood 113 mg/dL (75-99)
[2020-01-04] MEDS: KETOROLAC 15 MG/ML 1 ML VIAL IVP SCH ×3 (00:09→12:13)
[2020-01-04] MEDS: LACTATED RINGERS 1,000 ML IV SCH (05:52)
[2020-01-04 06:39] LABS: Glucose,Whole Blood 107 mg/dL (75-99)
[2020-01-04] MEDS: INSULIN ASPART (NovoLOG) 100 UNIT/ML VIAL SQ SCH ×2 (06:48→12:14)
[2020-01-04 08:27] VITALS: RESP 17
[2020-01-04] MEDS: APIXABAN 5 MG TAB PO SCH (08:31)
[2020-01-04] MEDS: FAMOTIDINE 20 MG/2 ML VIAL IV SCH (08:31)
[2020-01-04] MEDS: TAMSULOSIN 0.4 MG CAP.ER.24H PO SCH (08:31)
[2020-01-04] MEDS ORDERED: METOPROLOL SUCCINATE (ER) 50 MG TAB.ER.24H PO SCH (09:00)
--- NOTE | 2020-01-04 09:10 | P.PN ---
Subjective 59-year-old male patient history of bladder tumors treated with chemotherapy to bladder, admitted to the hospital with colovesical fistula. Patient underwent colonoscopy followed by elective lower anterior sigmoid resection on 12/[address] nash, does not have ostomy site. Sheridan catheter remains in place at this time. Patient is yet to pass gas or had bowel movement. Blood pressure stable postoperatively, he has not be bradycardic, takes metoprolol at home which has been decreased to 25 mg. We'll check EKG, no known history of arrhythmia. Afebrile. Postoperative WBC 17.0, most likely reactive secondary to surgery as there is no evidence of acute infection. Has lumbar epidural for analgesia postop. 01/01/2020 Patient seen sitting up in chair, appears no acute distress. Continues to be bradycardic, metoprolol decreased to 25 mg yesterday, her is currently 54 we'll discontinue metoprolol and increased dose of losartan. He is controlled, has epidural in place. Hemodynamically stable, afebrile. Tolerating oral intake on clear liquids, will decrease IV fluids. 01/02/2020 today in reevaluation patient doing well, epidural has been removed, having minimal pain. He has been up ambulating, passing gashad bowel movement since yesterday. Tolerating oral intake. 01/03/2020 Patient went into atrial fibrillation with rapid ventricular rate patient was subsequently transferred to cardiac care unit. Presently his heart rate is still high and presented patient on Cardizem was resumed on his metoprolol his metoprolol was discontinued yesterday because of the sinus bradycardia. Echocardiogram is being obtained. 01/04/2020 Patient is presently rate controlled at this time patient is bradycardic with 50 twice a day of Lopressor patient will be switched back to his Toprol-XL 50 mg daily. Patient is off Cardizem patient was started on Eliquis patient had a normal echocardiogram. Patient can be discharged from medical perspective did review and made appropriate changes to his discharge medications. Patient can be resumed on his home dose of losartan. Constitutional: Denied any fatigue denied any fever. Cardio vascular: denied any chest pain, palpitations Gastrointestinal denied any nausea vomiting Pulmonary: Denied any shortness of breath cough Neurologic denied any new focal deficits All inpatient medications were reviewed and appropriate changes in these medications as dictated in the interval history and assessment and plan. Objective - Vital Signs Vital signs: Vital Signs Temp 97.7 F 01/04/20 08:00 Pulse 50 L 01/04/20 08:00 Resp 17 01/04/20 08:00 BP 149/73 01/04/20 08:00 Pulse Ox 96 01/04/20 08:00 Intake & Output 01/03/20 01/04/20 01/04/20 18:59 06:59 18:59 Intake Total 1027 450 Output Total 800 Balance 227 450 Weight 100.516 kg 102.3 kg Intake: Intake, IV Titration 67 Amount Heparin Sod,Pork in 0.45% 67 NaCl 25,000 unit In 0.45 % NaCl 1 250ml.bag @ 10 UNITS/KG/HR 10 mls/hr IV .Q24H [facility] Rx#:[id number] Oral 960 450 Output: Urine 800 Other: Voiding Method Toilet Urinal # Voids 5 2 # Bowel Movements 2 - Exam PHYSICAL EXAMINATION: GENERAL: The patient is alert and oriented x3, not in any acute distress. Well developed, well nourished. HEENT: Pupils are round and equally reacting to light. EOMI. No scleral icterus. No conjunctival pallor. Normocephalic, atraumatic. No pharyngeal erythema. No thyromegaly. CARDIOVASCULAR: S1 and S2 present. No murmurs, rubs, or gallops. PULMONARY: Chest is clear to auscultation, no wheezing or crackles. ABDOMEN: Soft, nontender, nondistended, normoactive bowel sounds. No palpable organomegaly. MUSCULOSKELETAL: No joint swelling or deformity. EXTREMITIES: No cyanosis, clubbing, or pedal edema. NEUROLOGICAL: Gross neurological examination did not reveal any focal deficits. SKIN: No rashes. - Labs CBC & Chem 7: 01/02/20 05:59 01/02/20 05:59 Labs: Abnormal Lab Results - Last 24 Hours (Table) 01/03/20 01/03/20 01/03/20 Range/Units 11:32 16:39 20:27 POC Glucose (mg/dL) 136 H 115 H 113 H (75-99) mg/dL 01/04/20 Range/Units 06:37 POC Glucose (mg/dL) 107 H (75-99) mg/dL Assessment and Plan Plan: Assessment and Plan -Colovesical fistula most probably secondary due to past history of chemotherapy for bladder tumors: tolerating diet, passing gas and moving bowels. Epidural out, minimal pain. -Leukocytosis: Most probably reactive secondary to surgery, no evidence of acute infection, leukocytosis resolved New-onset atrial fibrillation presently rate controlled patient will be discharged on Toprol-XL 50 mgdaily and patient was started on Eliquis -Type 2 diabetes mellitus: -BPH: Continue home dose of Flomax. -Hypertension: patient can be resumed on home dose of losartan
[2020-01-04] MEDS: ALVIMOPAN 12 MG CAPSULE PO SCH (11:07)
[2020-01-04 11:51] LABS: Glucose,Whole Blood 105 mg/dL (75-99)
[2020-01-04 12:13] VITALS: BP 153/77; PULSE 47; TEMP 98.4
--- NOTE | 2020-01-04 13:20 | P.DS ---
<Teresa Box - Last Filed: 01/04/20 13:14> Providers Expected date of discharge: 01/04/20 Hospital Course: Discharge diagnosis 1. Colovesical fistula status post low anterior sigmoid resection 2. New onset of atrial fibrillation with rapid ventricular response Hospital course This is a 59-year-old male with a colovesical fistula he is status post lower anterior sigmoid resection with Dr. Worthington. Patient tolerated surgery well. He did require transfer to the telemetry floor when he had a new onset of atrial fibrillation with rapid ventricular response. Patient was placed on Cardizem drip. Cardiology was consulted. He has been able to be transitioned off of Cardizem and restarted on his metoprolol. Cardiology has started patient on Eliquis for anticoagulation for his A. fib. Patient is currently in sinus rhythm. He has been cleared by cardiology and medicine for discharge. Patient is tolerating diet. He has been up and ambulating. He is having bowel movements. He is afebrile. He is stable for discharge home. Physician Photographic Supervisor note has been reviewed by physician. Signing provider agrees with the documented findings, assessment, and plan of care. Patient Condition at Discharge: Stable Plan - Discharge Summary Discharge Rx Participant: No New Discharge Prescriptions: New Apixaban [Eliquis] 5 mg PO BID #60 tab Docusate [Colace] 100 mg PO BID #30 capsule Hydrocodone/Acetaminophen [Chouteau 5-325] 1 tab PO Q6HR PRN 3 Days #12 tab PRN Reason: Pain Continue Losartan [Cozaar] 50 mg PO QAM Celecoxib [CeleBREX] 200 mg PO DAILY Tamsulosin [Flomax] 0.4 mg PO DAILY Metoprolol Succinate [Toprol XL] 50 mg PO QAM Cholecalciferol [Vitamin D3 (25 Mcg = 1000 Iu)] 5,000 unit PO DAILY Aspirin EC [Ecotrin Low Dose] 81 mg PO DAILY Omeprazole 40 mg PO DAILY Canagliflozin/Metformin HCl [Invokamet 150-1,000 mg Tablet] 1 each PO QAM Discharge Medication List Aspirin EC [Ecotrin Low Dose] 81 mg PO DAILY 12/26/19 [History] Canagliflozin/Metformin HCl [Invokamet 150-1,000 mg Tablet] 1 each PO QAM 12/26/19 [History] Celecoxib [CeleBREX] 200 mg PO DAILY 12/26/19 [History] Cholecalciferol [Vitamin D3 (25 Mcg = 1000 Iu)] 5,000 unit PO DAILY 12/26/19 [History] Losartan [Cozaar] 50 mg PO QAM 12/26/19 [History] Metoprolol Succinate [Toprol XL] 50 mg PO QAM 12/26/19 [History] Omeprazole 40 mg PO DAILY 12/26/19 [History] Tamsulosin [Flomax] 0.4 mg PO DAILY 12/26/19 [History] Apixaban [Eliquis] 5 mg PO BID #60 tab 01/03/20 [Rx] Docusate [Colace] 100 mg PO BID #30 capsule 01/04/20 [Rx] Hydrocodone/Acetaminophen [Chouteau 5-325] 1 tab PO Q6HR PRN 3 Days #12 tab 01/04/20 [Rx] Follow up Appointment(s)/Referral(s): Fabian Worthington MD [Medical Doctor] - 01/12/20 9:00 am Cortney Wolf MD [STAFF PHYSICIAN] - 1 Week (Office will call you with an appointment.) Patient Instructions/Handouts: A-fib (Atrial Fibrillation) (DC), Diverticulitis (DC), Low Fiber Diet (DC) Activity/Diet/Wound Care/Special Instructions: Diet low fiber No driving while taking Chouteau No lifting over 10 pounds You may shower. No soaking or tub baths for 2 weeks Very light activity until you are reevaluated at your follow up appointment with your surgeon Discharge Disposition: HOME SELF-CARE <Fabian Worthington - Last Filed: 01/04/20 19:07> Providers Date of admission: 12/30/19 08:52 Attending physician: Fabian Worthington Consults: 12/30/19 12:27 Consult Physician Routine Consulting Provider: Bhavesh Smith Consult Reason/Comments: Medical management Do you want consulting provider notified?: Yes 01/03/20 03:01 Consult Physician Stat Consulting Provider: [place] Consult Reason/Comments: New onset Afib Do you want consulting provider notified?: Already Contacted Primary care physician: Harsha Rosariotaio - Discharge Diagnosis(es) (1) Colovesical fistula Status: Acute Hospital Course: As above. Patient doing well today. Tolerating diet. No pain. We'll discharge. Follow-up with myself in cardiology post discharge.
--- NOTE | 2020-01-04 14:00 | P.PN ---
Subjective Progress Note Date: 01/04/20 CHIEF COMPLAINT: A. fib with RVR HISTORY OF PRESENT ILLNESS: Patient examined this morning at the bedside. He denies chest pain or pressure. Denies shortness of breath. He is maintaining SR. Vital signs stable. PHYSICAL EXAM: VITAL SIGNS: Reviewed. GENERAL: Well-developed in no acute distress. HEENT: Head is normocephalic. Pupils are equal, round. Sclerae anicteric. Mucous membranes of the mouth are moist. Neck supple. No JVD or thyromegaly LUNGS: Respirations even and unlabored. Lungs essentially clear to auscultation bilaterally. HEART: Regular rate and rhythm. S1 and S2 heard. ABDOMEN: Soft. Nondistended. Nontender. EXTREMITIES: Normal range of motion. No clubbing or cyanosis. Peripheral pulses intact. No lower extremity edema NEUROLOGIC: Awake and alert. Oriented x 3. ASSESSMENT: New-onset paroxysmal atrial fibrillation with RVR Colovesicular fistula, status post low anterior resection Hypertension Diabetes mellitus, type II Obesity: BMI 32.7 History of nicotine dependence, in remission PLAN: Continue metoprolol and Eliquis Patient is stable for discharge home today from a cardiac standpoint. He is to follow up outpatient. Nurse practitioner note has been reviewed by physician. Signing provider agrees with the documented findings, assessment, and plan of care. Objective - Vital Signs Vital signs: Vital Signs Temp 98.4 F 01/04/20 12:00 Pulse 47 L 01/04/20 12:00 Resp 17 01/04/20 12:00 BP 153/77 01/04/20 12:00 Pulse Ox 97 01/04/20 12:00 Intake & Output 01/03/20 01/04/20 01/04/20 18:59 06:59 18:59 Intake Total 1027 450 240 Output Total 800 400 Balance 227 450 -160 Weight 100.516 kg 102.3 kg Intake: Intake, IV Titration 67 Amount Heparin Sod,Pork in 0.45% 67 NaCl 25,000 unit In 0.45 % NaCl 1 250ml.bag @ 10 UNITS/KG/HR 10 mls/hr IV .Q24H [facility] Rx#:[id number] Oral 960 450 240 Output: Urine 800 400 Other: Voiding Method Toilet Toilet Urinal Urinal # Voids 5 2 # Bowel Movements 2 - Labs CBC & Chem 7: 01/02/20 05:59 01/02/20 05:59 Labs: Abnormal Lab Results - Last 24 Hours (Table) 01/03/20 01/03/20 01/04/20 Range/Units 16:39 20:27 06:37 POC Glucose (mg/dL) 115 H 113 H 107 H (75-99) mg/dL 01/04/20 Range/Units 11:39 POC Glucose (mg/dL) 105 H (75-99) mg/dL
--- NOTE | 2020-01-10 08:21 | CDI ---
Documentation Clarification Form Date: 01/10/20 From: Sherie Graff Phone: If you have a question about this query, please contact Monica Álvarez, Landscape Supervisor at [phone] between 8am and 5pm. Admit Date: 12/30/19 Discharge Date:01/04/20 Patient Name: Gisella Bradshaw Visit Number: [id number] ATTENTION: The Clinical Documentation Specialists (CDI) and [facility] Coding Staff appreciate your assistance in clarifying documentation. Please respond to the clarification below the line at the bottom and electronically sign. The CDI & [facility] Coding staff will review the response and follow-up if needed. Please note: Queries are made part of the Legal Health Record. If you have any questions, please contact the author of this message via ITS. Dear Dr. Worthington Conflicting documentation has been found in the medical record: Colovesical fistula is documented in the H&P, procedure note, and your progress notes. Medical consult documentation states colovesical fistula most probably secondary to past history of chemotherapy for bladder tumor. Dr. Matos documented status post sigmoid colectomy for diverticulitis with colovesical fistula. Pathology report - Diverticulosis with submucosal abscess, fibrosis and histiocytes consistent with diverticular rupture. Op Note: "There was dense adhesions between the distal sigmoid colon and the bladder. Blunt dissection and electrocautery were used to separate these 2 structures. In doing so no visible hole was identified in either the bowel or the bladder." History/Risk Factors: Bladder tumors, history of chemotherapy, diverticulitis Clinical Indicators: Mild crampy gassy pains at times. Some pneumaturia at times. Treatment: Low anterior sigmoid resection. In your opinion, what is the most clinically appropriate diagnosis for this patient? Colovesical fistula Diverticulitis with rupture MTDD
== END 2020-01-04 15:46 | disposition home or self-care (01) | DRG 982 ==
LOC: 2ORMAIN 11:50 → UNDOADMIN 11:50 → 2ORMAIN 12-30 08:52 → 4SSUR 12-30 12:49 → 3SCARD 01-03 03:00
PROVIDERS: ADMIT Surgery; ATTEND Surgery
PROC: 0DBN0ZZ Excision of Sigmoid Colon, Open Approach (ICD-10-PCS; principal; 2019-12-30 10:05)
DX: N32.1 Vesicointestinal fistula (principal); K57.32 Diverticulitis of large intestine without perforation or abscess without bleeding; E11.9 Type 2 diabetes mellitus without complications; I48.0 Paroxysmal atrial fibrillation; Z90.6 Acquired absence of other parts of urinary tract; D72.829 Elevated white blood cell count, unspecified; E66.9 Obesity, unspecified; I10 Essential (primary) hypertension; N40.0 Benign prostatic hyperplasia without lower urinary tract symptoms; F17.201 Nicotine dependence, unspecified, in remission; R00.1 Bradycardia, unspecified; R11.0 Nausea; T44.7X5A Adverse effect of beta-adrenoreceptor antagonists, initial encounter; Z68.32 Body mass index [BMI] 32.0-32.9, adult; Z92.21 Personal history of antineoplastic chemotherapy; Z79.899 Other long term (current) drug therapy; Z79.82 Long term (current) use of aspirin; Z79.1 Long term (current) use of non-steroidal anti-inflammatories (NSAID); Z98.890 Other specified postprocedural states; Z87.19 Personal history of other diseases of the digestive system; Z90.89 Acquired absence of other organs; Z85.51 Personal history of malignant neoplasm of bladder; Z80.0 Family history of malignant neoplasm of digestive organs; Z83.71 Family history of colonic polyps
CPT/HCPCS: 45380; 80048; 83036; 84443; 85025; 85730; 86850; 86900; 86901; 88305; 88307; 93005; 93306

== ENCOUNTER → 2019-12-29 | Day surgery (SDC) | payer BC ==
[2019-12-26 14:39] VITALS: BMI 32.5
[~2019-12-29] MED LIST changes: +LIDOCAINE 1% (10MG/ML) FOR IV START INTRADERMA PRN; +PROPOFOL 10 MG/ML 20 ML VIAL IV ONE
[2019-12-29 12:36] VITALS: RESP 16; TEMP 97.6
--- NOTE | 2019-12-29 12:52 | P.PCN ---
Date of Procedure: 12/29/19 Procedure(s) Performed: PREOPERATIVE DIAGNOSIS: Colovesical fistula POSTOPERATIVE DIAGNOSIS: Diverticulosis, hepatic flexure polyp, rectal polyp PROCEDURE: Colonoscopy with biopsy ANESTHESIA: MAC SURGEON: Fabian Worthington M.D. SPECIMENS: Hepatic flexure polyp, rectal polyp ENDOSCOPIC PROCEDURE: The patient was placed on the endoscopy table in the left decubitus position. The Olympus colonoscope was inserted into the anus and passed under direct visualization to the base of the cecum. The appendiceal o rifice was visualized. From that point the scope was slowly withdrawn inspecting all surfaces carefully. There were no neoplastic inflammatory or polypoid lesions throughout the cecum or ascending colon. At the hepatic flexure a small polyp was seen and removed using the cold biopsy forceps. The remainder of the transverse descending and sigmoid colon were free of any neoplastic or polypoid lesions. In the rectum a small polyp was again seen and also removed using the cold biopsy forceps. The patient had extensive diverticular changes throughout the sigmoid colon with some mild inflammation seen. No definite fistula identified. The patient was taken to the recovery room in stable condition per anesthesia guidelines. RECOMMENDATIONS: Await biopsy results. Proceed with elective sigmoid resection.
[2019-12-29 13:11] VITALS: BP 116/61; PULSE 52
== END | disposition home or self-care (01) ==
LOC: ORWHC2ENDO 15:45
PROVIDERS: ATTEND Surgery
DX: D12.3 Benign neoplasm of transverse colon (principal); K62.1 Rectal polyp; I10 Essential (primary) hypertension; K21.9 Gastro-esophageal reflux disease without esophagitis; N42.9 Disorder of prostate, unspecified; Z98.890 Other specified postprocedural states; Z85.51 Personal history of malignant neoplasm of bladder; Z92.21 Personal history of antineoplastic chemotherapy; Z97.2 Presence of dental prosthetic device (complete) (partial); Z87.891 Personal history of nicotine dependence; Z90.79 Acquired absence of other genital organ(s); Z79.1 Long term (current) use of non-steroidal anti-inflammatories (NSAID); Z79.82 Long term (current) use of aspirin; Z79.899 Other long term (current) drug therapy; Z79.84 Long term (current) use of oral hypoglycemic drugs; Z88.6 Allergy status to analgesic agent
CPT/HCPCS: 88305; 45380; J2704

== ENCOUNTER → 2021-09-13 | Outpatient (CLI) | payer OTHER ==
--- NOTE | 2021-09-13 23:47 | MR ---
EXAMINATION TYPE: MR brain and iac wo con DATE OF EXAM: 09/13/2021 COMPARISON: None HISTORY: Dizziness Multiplanar multi echo imaging of the brain and posterior fossa obtained without contrast. There is no mass effect or midline shift. No evidence of intracranial hemorrhage. There is a 1 cm rou nded fluid density in the left anterior temporal lobe that is probably a Virchow-Ryan space. There i s some cerebral atrophy. The brainstem is intact. Diffusion images show no evidence of an acute infar ct. There is some minimal increased signal in the periventricular white matter in a diffuse pattern t hat could be some age related white matter disease. The brainstem is intact. There is no evidence of a posterior fossa mass. There is good visualization of the internal auditory canals. The acoustic nerve and vestibular nerve appear normal. No evidence of cerebellopontine angle mass. There is normal aeration of the mastoid sinuses. No evidence of mastoiditis. Cerebellum appears intact. IMPRESSION: There is mild atrophy and age-related white matter changes. No evidence of cortical infarct. No focal posterior fossa abnormality.
== END | disposition home or self-care (01) ==
LOC: RADMRIMAIN 20:50
PROVIDERS: ATTEND Family Medicine
DX: G31.9 Degenerative disease of nervous system, unspecified (principal)
CPT/HCPCS: 70551

== ENCOUNTER → 2022-02-18 | Outpatient (CLI) | payer OTHER ==
[2022-02-18 08:37] LABS: African American GFR (CKD) >90 (>60 ml/min/1.73 sqM); Blood Urea Nitrogen 19 mg/dL (9-20); Non-African American GFR(CKD) 85 (>60 ml/min/1.73 sqM)
--- NOTE | 2022-02-18 09:12 | CT ---
EXAMINATION TYPE: CT chest w con DATE OF EXAM: 02/18/2022 COMPARISON: CT abdomen and pelvis September 12, 2019 HISTORY: Abnormal findings on prior CT. CT DLP: 472.8 mGycm. Automated Exposure Control for Dose Reduction was Utilized. TECHNIQUE: CT scan of the thorax is performed following with IV Contrast, patient injected with 70ml mL of Isovue 300. FINDINGS: LUNGS: Scattered small nodules in the lower lungs redemonstrated. For reference, there are 2 adjacent peripheral left lower lobe nodules axial image 42 measuring nearly up to 5 mm in size. No new or enl arging greater than 5 mm pulmonary nodules clearly seen. There is no pleural effusion or pneumothorax seen. The tracheobronchial tree is patent. MEDIASTINUM: There are no greater than 1 cm hilar or mediastinal lymph nodes. No cardiomegaly or pe ricardial effusion is seen. Subcentimeter right thyroid isthmus nodule axial image 10 OTHER: Visualized liver is low dense suggesting diffuse fatty infiltration. IMPRESSION: Small bilateral basilar nodules redemonstrated. No new or enlarging greater than 5 mm pul monary nodules.
== END | disposition home or self-care (01) ==
LOC: RADCTMAIN 07:43
PROVIDERS: ATTEND Family Medicine
DX: R91.8 Other nonspecific abnormal finding of lung field (principal)
CPT/HCPCS: 82565; 84520; 71260; 36415; Q9967

== ENCOUNTER → 2022-03-10 | Outpatient (CLI) | payer OTHER ==
--- NOTE | 2022-03-10 17:04 | US ---
EXAMINATION TYPE: US thyroid st tissue head/neck DATE OF EXAM: 03/10/2022 COMPARISON: CT chest 02/18/2022 CLINICAL HISTORY: E04.1 NONTOXIC SINGLE THYROID NODULE. CT showed isthmus thyroid nodule. GLAND SIZE: Right Lobe: 4.1 x 2.0 x 1.8 cm Overall Parenchyma: homogenous Left Lobe: 3.3 x 1.2 x 1.8 cm Overall Parenchyma: homogeneous Isthmus Thickness: 0.8 cm NODULES RIGHT: # of nodules measured on right: 1 1. 0.9 X 0.7 x 0.6 cm, upper lateral, mixed cystic and solid, hypoechoic nodule, which is wider aspen n tall, with lobulated or irregular margins, without echogenic foci. TR 4 nodule. Prior size: no prior LEFT: # of nodules measured on left: 0 ISTHMUS: # of nodules measured in the isthmus: 1 1. 0.7 X 0.8 x 0.4 cm right lateral cystic or almost completely cystic colloid appearing, anechoic nodule, which is wider than tall, with smooth margins, without echogenic foci. TR 1. Prior size: No prior Bilateral neck scanned, no evidence of lymphadenopathy. IMPRESSION: 1. Right thyroid lobe nodule measuring up to 0.9 cm consistent with a TR 4 nodule. Follow-up ultraso und in one year is recommended. 2. Isthmus 0.8 cm cystic nodule consistent with TR 1 nodule.
== END | disposition home or self-care (01) ==
LOC: RADUSWWP 16:11
PROVIDERS: ATTEND Family Medicine
DX: E04.2 Nontoxic multinodular goiter (principal)
CPT/HCPCS: 76536

== ENCOUNTER → 2022-09-12 | Outpatient (CLI) | payer OTHER ==
--- NOTE | 2022-09-13 09:07 | US ---
EXAMINATION TYPE: US thyroid st tissue head/neck DATE OF EXAM: 09/12/2022 COMPARISON: 03/10/2022 CLINICAL INDICATION: Male, 62 years old with history of E04.1 NONTOXIC SINGLE THYROID NODULE; Thyroid nodule GLAND SIZE: Right Lobe: 4.5x1.2x1.8 cm Overall Parenchyma: homogenous Left Lobe: 4.2x1.2x1.5 cm Overall Parenchyma: homogeneous Isthmus Thickness: 1.0 cm NODULES RIGHT: # of nodules measured on right: 1 1. 0.83 X 0.48 x 0.74 cm, upper lateral, mixed cystic and solid, hypoechoic nodule, which is wider than tall, with smooth margins, without echogenic foci. Prior size: 0.87 x 0.61 x 0.65 cm LEFT: # of nodules measured on left: 0 ISTHMUS: # of nodules measured in the isthmus: 1 1. 0.76 X 0.58 x 0.81 cm cystic or almost completely cystic, anechoic nodule, which is wider than t all, with smooth margins, without echogenic foci. Prior size: 0.83 x 0.72 x 0.44 cm Bilateral neck scanned, no evidence of lymphadenopathy. IMPRESSION: Stable nonspecific thyroid nodularity.
== END | disposition home or self-care (01) ==
LOC: RADUSWWP 16:04
PROVIDERS: ATTEND Family Medicine
DX: E04.1 Nontoxic single thyroid nodule (principal)
CPT/HCPCS: 76536

== ENCOUNTER → 2022-10-02 | Outpatient (CLI) | payer OTHER ==
--- NOTE | 2022-10-02 19:45 | US ---
EXAMINATION TYPE: US kidneys/renal and bladder DATE OF EXAM: 10/02/2022 COMPARISON: US 2019 CLINICAL INDICATION: Male, 62 years old with history of R10.9 ABD PAIN; Lower back pain EXAM MEASUREMENTS: Right Kidney: 10.9 x 6.3 x 5.8 cm Left Kidney: 9.4 x 5.9 x 5.7 cm No hydronephrosis on either side. Right Kidney: 0.7cm echogenic focus inferior pole Left Kidney: wnl Bladder: wnl Bilateral Jets seen: yes IMPRESSION: No hydronephrosis. A 7 mm nonobstructive right renal stone.
== END | disposition home or self-care (01) ==
LOC: RADUSWWP 14:50
PROVIDERS: ATTEND Family Medicine
DX: N20.0 Calculus of kidney (principal)
CPT/HCPCS: 76770

== ENCOUNTER → 2022-11-18 | Outpatient (CLI) | payer OTHER ==
--- NOTE | 2022-11-18 17:34 | CT ---
EXAMINATION TYPE: CT abdomen pelvis wo con DATE OF EXAM: 11/18/2022 COMPARISON: 09/12/2019 HISTORY: Groin pain x 1.[address] DLP: 1197 mGycm Examination of the solid and hollow viscera is limited given the lack of contrast. FINDINGS: LUNG BASES: No evidence for nodule. No evidence for infiltrate. LIVER/GB: The gallbladder is unremarkable. No space-occupying hepatic lesion. PANCREAS: No pancreatic mass identified. No inflammatory process seen. SPLEEN: No evidence for splenomegaly. No intrasplenic lesions seen. ADRENALS: No adrenal nodules identified. No evidence for thickening. KIDNEYS: No evidence for renal mass. Nonobstructing nephrolithiasis lower pole right kidney measures 1.0 cm and 0.8 cm respectively. No hydronephrosis present. No hydronephrosis. BOWEL: Appendix has a normal appearance. No evidence of bowel obstruction. No inflammatory process. P ostsurgical changes rectosigmoid colon. Lymph nodes: No evidence for adenopathy greater than 1 cm. Abdominal aorta: Atheromatous changes seen. No evidence for aneurysm. Genital organs: No significant abnormality. Other: Fat-containing inguinal hernias left greater than right. IMPRESSION: 1. Fat-containing inguinal hernias left greater than right. 2. Nonobstructing nephrolithiasis
== END | disposition home or self-care (01) ==
LOC: RADCTMAIN 17:01
PROVIDERS: ATTEND Family Medicine
DX: N20.0 Calculus of kidney (principal); K40.90 Unilateral inguinal hernia, without obstruction or gangrene, not specified as recurrent
CPT/HCPCS: 74176

== ENCOUNTER → 2023-04-13 | Outpatient (CLI) | payer OTHER ==
[2023-04-14 02:46] LABS: Basophils # (A) 0.06 X 10*3/uL (0.00-0.10); Basophils % (A) 0.8 %; Eosinophils # (A) 0.08 X 10*3/uL (0.04-0.35); HCT 52.6 % (39.6-50.0); HGB 18.1 g/dL (13.0-17.0); Lymphocytes # (A) 1.62 X 10*3/uL (0.90-5.00); Lymphocytes % (A) 20.7 %; MCHC 34.4 g/dL (32.0-37.0); MCV 90.2 FL (80.0-97.0); Mean Platelet Volume 10.7 FL (9.5-12.2); Monocytes # (A) 0.76 X 10*3/uL (0.20-1.00); Monocytes % (A) 9.7 %; NRBC Per 100 WBC 0 X 10*3/uL (0.00-0.01); Neutrophils # (A) 5.29 X 10*3/uL (1.80-7.70); Neutrophils % (A) 67.4 %; Platelet Count 197 X 10*3/uL (140-440); RBC 5.83 X 10*6/uL (4.40-5.60); RDW 12.6 % (11.5-14.5); WBC 7.84 X 10*3/uL (4.50-10.00)
== END | disposition home or self-care (01) ==
LOC: LABPAT 15:37
PROVIDERS: ATTEND Surgery
DX: Z01.818 Encounter for other preprocedural examination (principal); K40.90 Unilateral inguinal hernia, without obstruction or gangrene, not specified as recurrent
CPT/HCPCS: 85025; 86850; 86900; 86901; 93005

== ENCOUNTER 2023-04-20 06:23 | Day surgery (SDC) | payer OTHER ==
[~2023-04-20 06:23] MED LIST changes: +ACETAMINOPHEN TAB 500 MG TAB PO PRN; +HEPARIN SODIUM,PORCINE 5,000 UNIT/ML 1 ML VIAL SQ PRN; -LACTATED RINGERS 1,000 ML IV SCH; -LIDOCAINE 1% (10MG/ML) FOR IV START INTRADERMA PRN; -PROPOFOL 10 MG/ML 20 ML VIAL IV ONE
[2023-04-20] MEDS ORDERED: ONDANSETRON 4 MG/2 ML VIAL ONE (06:49)
[2023-04-20 07:16] LABS: Glucose,Whole Blood 126 mg/dL (70-110)
[2023-04-20] MEDS ORDERED: LACTATED RINGERS 1,000 ML IV ONE ×2 (07:16→09:41)
[2023-04-20] MEDS ORDERED: DEXAMETHASONE SOD PHOSPHATE 4 MG/ML 1 ML VIAL IVP ONE (07:17)
[2023-04-20] MEDS ORDERED: LIDOCAINE 1% INJ 10MG/ML (20 ML MDV) ONE (07:25)
[2023-04-20] MEDS ORDERED: PHENYLEPHRINE 10 MG/ML VIAL ONE (07:25)
[2023-04-20] MEDS ORDERED: ROCURONIUM 10 MG/ML (5 ML VIAL) IV ONE (07:25)
[2023-04-20] MEDS ORDERED: GLYCOPYRROLATE 0.2 MG/ML 2 ML VIAL ONE (07:25)
[2023-04-20] MEDS ORDERED: SUCCINYLCHOLINE CHLORIDE 200 MG/10 ML VIAL IV ONE (07:25)
[2023-04-20] MEDS ORDERED: fentaNYL (PF) 50 MCG/ML 2 ML AMP ONE (07:25)
[2023-04-20] MEDS ORDERED: NEOSTIGMINE 1 MG/ML 10 ML VIAL ONE (07:25)
[2023-04-20] MEDS ORDERED: PROPOFOL 10 MG/ML 20 ML VIAL IV ONE (07:25)
[2023-04-20] MEDS ORDERED: MIDAZOLAM 2 MG/2 ML VIAL ONE (07:25)
[2023-04-20] MEDS ORDERED: BUPIVACAINE (PF) 0.25% 30 ML VIAL SQ ONE (07:30)
[2023-04-20] MEDS: TAMSULOSIN 0.4 MG CAP.ER.24H PO ONE ×2 (07:32→10:10)
--- NOTE | 2023-04-20 07:35 | P.GSHP ---
History of Present Illness H&P Date: 04/20/23 Chief Complaint: Left inguinal hernia 63-year-old male known to our service. Patient with complaints of enlarging bulge left groin. Has a left inguinal hernia on exam. History of previous sigmoid colectomy for colovesical fistula. History of previous open right inguinal hernia repair in the past. Past Medical History Past Medical History: Atrial Fibrillation, Cancer, Diabetes Mellitus, GERD/Reflux, Hypertension, Prostate Disorder, Sleep Apnea/CPAP/BIPAP Additional Past Medical History / Comment(s): AFIB POST OP BOWEL SURGERY FOR COLOVESICAL FISTULA, HX OF POLYPS, DIVERTICULAR DISEASE, CANCEROUS BLADDER TUMORS WITH CHEMO TO BLADDER (MITOMYCIN- LAST RECEIVED APPROX 2014), KELLY WITH CPAP USE, HGB RUNS HGB/HCT. History of Any Multi-Drug Resistant Organisms: None Reported Past Surgical History: Bowel Resection, Hernia Repair, Tonsillectomy Additional Past Surgical History / Comment(s): LOW ANTERIOR RESECTION, HERNIA (AGE 16), BLADDER TUMORS REMOVED, COLONOSCOPY Past Anesthesia/Blood Transfusion Reactions: No Reported Reaction Past Psychological History: No Psychological Hx Reported Additional Psychological History / Comment(s): PT RESIDES WITH SPOUSE AND FAMILY. Smoking Status: Former smoker Past Alcohol Use History: Daily Additional Past Alcohol Use History / Comment(s): QUIT CHEWING TOBACCO 2007, QUIT SMOKING 25 YRS PRIOR . Past Drug Use History: None Reported - Past Family History Mother Family Medical History: No Reported History Father Family Medical History: Coronary Artery Disease (CAD) Medications and Allergies Home Medications Medication Instructions Recorded Confirmed Type Cholecalciferol [Vitamin D3 (25 5,000 unit PO QAM 12/26/19 04/14/23 History Mcg = 1000 Iu)] Metoprolol Succinate [Toprol XL] 12.5 mg PO QAM 12/26/19 04/14/23 History Omeprazole 40 mg PO QAM 12/26/19 04/14/23 History Tamsulosin [Flomax] 0.4 mg PO QAM 12/26/19 04/14/23 History Apixaban [Eliquis] 5 mg PO BID #60 tab 01/03/20 04/14/23 Rx Cinnamon Bark [Cinnamon] 2,000 mg PO QAM 04/14/23 04/14/23 History Dapagliflozin/Metformin HCl 1 tab PO QAM 04/14/23 04/14/23 History [Xigduo Xr 10 mg-1,000 mg Tab] Losartan Potassium 100 mg PO QAM 04/14/23 04/14/23 History Allergies Allergy/AdvReac Type Severity Reaction Status Date / Time tolmetin [From Tolectin] Allergy Unknown Rash/Hives Verified 04/20/23 06:55 Surgical - Exam Vital Signs Temp Pulse Resp BP Pulse Ox 97.1 F L 58 L 20 168/83 95 04/20/23 06:57 04/20/23 06:57 04/20/23 06:57 04/20/23 06:57 04/20/23 06:57 Physical exam: General: Well-developed, well-nourished HEENT: Normocephalic, sclerae nonicteric Abdomen: Nontender, nondistended, reducible left inguinal hernia Extremities: No edema Neuro: Alert and oriented Results - Labs Abnormal Lab Results - Last 24 Hours (Table) 04/20/23 Range/Units 07:03 POC Glucose (mg/dL) 126 H (70-110) mg/dL Assessment and Plan (1) Left inguinal hernia Narrative/Plan: 63-year-old male with symptomatic left inguinal hernia. Will proceed with laparoscopic da Raji assisted repair left inguinal hernia with mesh, possible open, possible bilateral. Risks of bleeding, infection, recurrence, bladder and bowel injury, numbness, nerve injury, conversion to an open procedure were discussed with the patient. The patient understands and wishes to proceed. Current Visit: Yes Status: Acute Code(s): K40.90 - UNIL INGUINAL HERNIA, W/O OBST OR GANGR, NOT SPCF RECUR SNOMED Code(s): 720895601
--- NOTE | 2023-04-20 09:24 | P.OP ---
Date of Procedure: 04/20/23 Procedure(s) Performed: PREOPERATIVE DIAGNOSIS: Left inguinal hernia POSTOPERATIVE DIAGNOSIS: Same, abdominal adhesions PROCEDURE: Laparoscopic da Raji assisted repair left indirect inguinal hernia with mesh, laparoscopic lysis of adhesions SURGEON: Dr. Worthington ANESTHESIA: General OPERATIVE PROCEDURE DETAILS: Patient was placed in the operating table in the supine position. The patient was placed under general anesthesia. The abdomen was prepped and draped in usual sterile fashion. A small curvilinear supraumbilical incision was made. The fascia was retracted anteriorly with Val forceps. The Veress needle was inserted. The saline drop test was normal. Insufflation took place to 15 mmHg. An 8 mm trocar was placed into the peritoneal cavity. 2 additional 8 mm trochars were placed in the right upper quadrant and left upper quadrant under visualization. The robotic arms were then brought in and docked into place. The fenestrated bipolar was used in the left arm and the laparoscopic tuan was utilized in the right arm. A 30 8 mm scope was used in the up position. The peritoneal cavity was inspected. The patient had a adhesion between the small bowel and the suprapubic midline. This was lysed sharply. The patient had no visible hernia on the right side. A moderate-sized indirect hernia on the left was seen. The peritoneum was incised in a horizontal fashion cephalad to the internal inguinal ring. Following that careful dissection of the preperitoneal space took place. This took place using both electrocautery, sharp dissection but primarily blunt dissection. Visualization of the pubic tubercle and Alfred's ligament took place medially. Full dissection took place laterally as well. The hernia sac was fully dissected. Once we had adequate space the [id number] Progrip mesh was advanced into the preperitoneal space and flattened out appropriately to cover all potential hernia sites. The mesh was sutured to the Alfred's ligament using a short running absorbable 3 OV lock suture. The peritoneal defect was then closed using a absorbable 2-0 VLok suture. The hernia sac was incorporated into the peritoneal closure to help prevent future recurrence. The pneumoperitoneum was then evacuated. The skin of all 3 sites was closed using a 4-0 Monocryl stitch. Skin glue was then applied. TYPE OF MESH USED: ProGrip LOCATION OF MESH: Preperitoneal FIXATION: 3-0 absorbable V-Loc PREOPERATIVE DISCUSSION ON SMOKING CESSASTION: Yes PREOPERATIVE DISCUSSION ON MORBID OBESITY: Yes PREOPERATIVE DISCUSSION ON APPROPRIATE USE OF NARCOTIC USE: Yes PREOPERATIVE EDUCATION: Multi Modal, Smoking Cessation and Weight Loss with BMI over 35. DISPOSITION: Stable to recovery room
[2023-04-20 09:30] LABS: Glucose,Whole Blood 165 mg/dL (70-110)
[2023-04-20 09:41] VITALS: TEMP 98.5
[2023-04-20 11:04] VITALS: BP 127/72; PULSE 51; RESP 20
[2023-04-20] MEDS ORDERED: ACETAMINOPHEN TAB 325 MG TAB PO SCH (13:00)
[2023-04-20] MEDS ORDERED: IBUPROFEN 600 MG TAB PO SCH (16:00)
== END 2023-04-20 11:13 | disposition home or self-care (01) ==
LOC: OR 06:23
PROVIDERS: ATTEND Surgery
DX: K40.90 Unilateral inguinal hernia, without obstruction or gangrene, not specified as recurrent (principal); K66.0 Peritoneal adhesions (postprocedural) (postinfection); I48.91 Unspecified atrial fibrillation; E11.9 Type 2 diabetes mellitus without complications; K21.9 Gastro-esophageal reflux disease without esophagitis; I10 Essential (primary) hypertension; E78.5 Hyperlipidemia, unspecified; G47.33 Obstructive sleep apnea (adult) (pediatric); N42.9 Disorder of prostate, unspecified; K57.90 Diverticulosis of intestine, part unspecified, without perforation or abscess without bleeding; Z85.51 Personal history of malignant neoplasm of bladder; Z98.890 Other specified postprocedural states; Z87.891 Personal history of nicotine dependence; Z82.49 Family history of ischemic heart disease and other diseases of the circulatory system; Z79.01 Long term (current) use of anticoagulants; Z79.84 Long term (current) use of oral hypoglycemic drugs; Z88.5 Allergy status to narcotic agent
CPT/HCPCS: 49650; S2900

== ENCOUNTER → 2023-05-12 | Outpatient (CLI) | payer OTHER ==
--- NOTE | 2023-05-13 08:28 | US ---
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 On blood thinners. Hx recent left groin hernia repair x 3-4 weeks ago. No rednes s or swelling. SIDE PERFORMED: Right TECHNIQUE: The lower extremity deep venous system is examined utilizing real time linear array sonog rosaline with graded compression, doppler sonography and color-flow sonography. VESSELS IMAGED: Common Femoral Vein Deep Femoral Vein Greater Saphenous Vein * Femoral Vein Popliteal Vein Small Saphenous Vein * Proximal Calf Veins (* superficial vessels) Right Leg: Negative for DVT IMPRESSION: No evidence for DVT within the right lower extremity imaged from the groin to the upper calf.
== END | disposition home or self-care (01) ==
LOC: RADUSWWP 12:18
PROVIDERS: ATTEND Family Medicine
DX: M79.661 Pain in right lower leg (principal); Z79.01 Long term (current) use of anticoagulants

== ENCOUNTER → 2023-07-24 | Outpatient (CLI) | payer OTHER ==
--- NOTE | 2023-07-24 12:26 | US ---
EXAMINATION TYPE: US duplex aorta DATE OF EXAM: 07/24/2023 COMPARISON: NONE CLINICAL INDICATION: Male, 63 years old with history of R42 DIZZINESS Z13.6 CARDIOVAS SCREENING; scre ening, no symptoms, smoker TECHNIQUE: Multiple sonographic images of the abdominal aorta are obtained. 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
--- NOTE | 2023-07-24 12:33 | US ---
EXAMINATION TYPE: US carotid duplex BILAT DATE OF EXAM: 07/24/2023 COMPARISON: NONE CLINICAL INDICATION: Male, 63 years old with history of R42 DIZZINESS Z13.6 CARDIOVAS SCREENING; dizz y, no h/o stroke TECHNIQUE: Carotid duplex ultrasound examination. Indirect Doppler criteria was utilized. FINDINGS: EXAM MEASUREMENTS: RIGHT: Peak Systolic Velocity (PSV) cm/sec ----- Right CCA: 83.2 ----- Right ICA: 62.3 ----- Right ECA: 76.0 ICA/CCA ratio: 0.7 RIGHT: End Diastole cm/sec ----- Right CCA: 17.0 ----- Right ICA: 16.4 ----- Right ECA: 7.4 LEFT: Peak Systolic Velocity (PSV) cm/sec ----- Left CCA: 71.6 ----- Left ICA: 65.0 ----- Left ECA: 83.6 ICA/CCA ratio: 0.9 LEFT: End Diastole cm/sec ----- Left CCA: 13.4 ----- Left ICA: 14.4 ----- Left ECA: 9.1 VERTEBRALS (direction of flow): Right Vertebral: Antegrade Left Vertebral: Antegrade Rhythm: Normal CHEMICAL TREATMENT OPERATOR NOTES: Mild homogeneous plaque with no stenosis seen IMPRESSION: Mild to moderate plaque formation in the carotid bifurcations bilaterally but no hemodynamically sign ificant stenosis based on peak systolic velocities and ratios. Criteria for Assigning % of Stenosis / Diameter reduction (Estimation based on the indirect measurements of the internal carotid artery velocities (ICA PSV). 1. Normal (no stenosis)=ICA PSV < 125 cm/s: ratio < 2.0: ICA EDV<40 cm/s. 2. Less than 50% stenosis=ICA PSV < 125 cm/s: ratio < 2.0: ICA EDV<40 cm/s. 3. 50 to 69% stenosis=ICA PSV of 125 to 230 cm/s: ration 2.0 ? 4.0: ICA EDV 40-100 cm/s. 4. Greater than 70% stenosis to near occlusion= ICA PSV > 230 cm/s: ratio > 4.0: ICA EDV > 100 cm/s. 5. Near occlusion= ICA PSV velocities may be low or undetectable: variable ratio and ICA EDV. 6. Total occlusion=unable to detect flow.
== END | disposition home or self-care (01) ==
LOC: RADUSWWP 08:36
PROVIDERS: ATTEND Family Medicine
DX: Z13.6 Encounter for screening for cardiovascular disorders (principal); I65.23 Occlusion and stenosis of bilateral carotid arteries
CPT/HCPCS: 76706; 93880

== ENCOUNTER → 2023-12-02 | Outpatient (CLI) | payer OTHER ==
--- NOTE | 2023-12-02 18:54 | MR ---
EXAMINATION TYPE: MR thoracic spine wo con DATE OF EXAM: 12/02/2023 COMPARISON: HISTORY: Back pain x 1 year. CONTRAST: Performed utilizing mL intravenous gadolinium contrast. TECHNIQUE: Multiplanar, multiecho imaging on a 3.0 Fanny magnet is performed through the thoracic spi ne. Spinal cord maintains normal signal through its visualized course. Vertebral body alignment is normal. Vertebral body heights are preserved. Disc heights are preserved. Mild diffuse disc desiccation present. T5-6: There is some mild central disc protrusion. No cord contact or spinal canal stenosis is present . T6-7, T4-5 and T3-4 mild anterior thecal sac compression. No spinal canal stenosis is evident. T3-4: The cord in the sagittal plane appears to has some mild narrowing. No underlying etiology is id entified. In the axial plane there is some signal abnormality posterior to the spinal cord. This may be CSF flow signal abnormality. Intradural and extra medullary mass could be considered. This would m easure 0.6 x 0.3 cm in size with mass effect on the posterior spinal cord. Contrast MRI is recommende d for additional evaluation. No spinal canal stenosis is evident. IMPRESSION: 1. There is appears to be some cord narrowing at the T3-4 level. In the axial plane posterior signal change is present. This may be a mass or artifact from CSF flow signal abnormality. Additional evalu ation with contrast-enhanced MRI is recommended.
== END | disposition home or self-care (01) ==
LOC: RADMRIMAIN 16:57
PROVIDERS: ATTEND Family Medicine
DX: M54.6 Pain in thoracic spine (principal)
CPT/HCPCS: 72146

== ENCOUNTER → 2023-12-29 | Outpatient (CLI) | payer OTHER ==
--- NOTE | 2023-12-29 10:04 | MR ---
INDICATION: Patient age:Male; 63 years old; Reason for study: M54.6 PAIN IN THORACIC SPINE; [facility]. COMPARISON: MRI of thoracic spine 12/02/2023 TECHNIQUE: Multi planar, multi sequence imaging was performed after the uneventful administration of 9 mL of Gadavist intravenously. FINDINGS: The thoracic vertebral bodies have preserved heights and alignment. The osseous structure have normal signal intensity. No abnormal thoracic spinal cord enhancement. There is no gross evidence of extrad ural defects or central spinal canal narrowing at any thoracic vertebral body level. Intervertebral discs demonstrate normal signal intensity. No abnormal contrast enhancement. IMPRESSION: No abnormal enhancing thoracic spine mass identified. Previous finding likely represents an artifact from CSF flow. Consider follow-up MRI in one year if there is continued concern. [facility], , 12/29/2023 10:02 AM
== END | disposition home or self-care (01) ==
LOC: RADMRIMAIN 06:48
PROVIDERS: ATTEND Family Medicine
DX: M54.6 Pain in thoracic spine (principal)
CPT/HCPCS: 72147

== ENCOUNTER → 2024-03-03 | Outpatient (CLI) | payer OTHER ==
[2024-03-03 16:51] LABS: African American GFR (CKD) >90 (>60 ml/min/1.73 sqM); Blood Urea Nitrogen 13 mg/dL (9-20); Non-African American GFR(CKD) 85 (>60 ml/min/1.73 sqM)
--- NOTE | 2024-03-03 19:36 | CT ---
EXAMINATION TYPE: CT abdomen w con DATE OF EXAM: 03/03/2024 5:26 PM COMPARISON: 11/18/2022. CLINICAL INDICATION: Male, 64 years old with history of K921 MELENA; Blood in stool x1mo ago, abdomin al pain. TECHNIQUE: Axial CT abdomen w con;Sagittal and coronal reformats were created on a separate workstat ion. Contrast used:100 ml mL of Isovue 300 with IV Contrast, (none if empty) Oral contrast used: with Oral Contrast (none if empty) CT DLP: 1761.4 mGycm, Automated exposure control for dose reduction was used. FINDINGS: LOWER CHEST: Unremarkable ABDOMEN LIVER: Diffusely hypoattenuating parenchyma. GALLBLADDER AND BILE DUCTS: Unremarkable. PANCREAS: Unremarkable. SPLEEN: Unremarkable. ADRENAL GLANDS: Unremarkable. KIDNEYS AND URETERS: No evidence of hydronephrosis. Nonobstructing right renal calculi measuring up t o 8 mm mm. The ureters are unremarkable. STOMACH AND BOWEL: Stomach and duodenum are unremarkable No evidence of bowel obstruction. The append ix is normal. Visualized large bowel demonstrates moderate amount stool in the right colon. Postsurgi na changes to the sigmoid rectal junction. PERITONEUM/RETROPERITONEUM: No evidence of pneumoperitoneum or free fluid. VASCULATURE: No evidence of aortic aneurysm. MUSCULOSKELETAL: No acute osseous abnormalities LYMPH NODES: No gross evidence for lymphadenopathy. SOFT TISSUE/ABDOMINAL WALL: Unremarkable IMPRESSION: 1. No evidence for acute abdominal process. The pelvis was not in the [id number]. 2. Postsurgical changes sigmoid rectal junction. 3. Nonobstructing right renal calculi. [facility], , 03/03/2024 7:34 PM
== END | disposition home or self-care (01) ==
LOC: RADCTMAIN 15:59
PROVIDERS: ATTEND Family Medicine
DX: K92.1 Melena (principal); N20.0 Calculus of kidney; Z98.890 Other specified postprocedural states
CPT/HCPCS: 82565; 84520; 74160; 36415; Q9967

== ENCOUNTER → 2024-04-11 | Outpatient (CLI) | payer BC ==
--- NOTE | 2024-04-11 16:47 | US ---
EXAMINATION TYPE: US groin LT DATE OF EXAM: 04/11/2024 COMPARISON: NONE CLINICAL INDICATION: Male, 64 years old with history of R10.2 PELVIC AND PERINEAL PAIN; Pinching pain x years TECHNIQUE: FINDINGS: Heterogenous lobulated area with vascularity = 2.0 x 1.1 x 2.4 cm ? lymph node vs other et iology IMPRESSION: Nonspecific heterogeneous lobulated area measuring 2.4 cm.. Consider follow-up CT scan o f the pelvis. [facility], , 04/11/2024 4:44 PM
--- NOTE | 2024-04-12 08:24 | US ---
EXAMINATION TYPE: US scrotum with doppler. DATE OF EXAM: 04/11/2024 COMPARISON: NONE CLINICAL INDICATION: Male, 64 years old with history of R10.2 PELVIC AND PERINEAL PAIN; Pinching pain x years; Hx hernia at 16 with mesh replacement TECHNIQUE: Grayscale, color Doppler and spectral Doppler imaging of the scrotum. FINDINGS: EXAM MEASUREMENTS: TESTICLES: Right Testicle: 3.5 x 2.3 x 3.9 cm Left Testicle: 4.5 x 2.2 x 3.1 cm EPIDIDYMIS HEAD: Right Epididymis: 1.8 x 1.1 x 1.6 cm Left Epididymis: 1.1 x 0.9 x 1.3 cm Doppler performed to assess for testicular vascularity; good bilateral color flow and spectral wavefo zahra are seen. There is no evidence of testicular torsion. Presence of hydroceles: No Presence of varicoceles: No IMPRESSION: No evidence of testicular mass or testicular torsion. [facility], , 04/12/2024 8:22 AM
== END | disposition home or self-care (01) ==
LOC: RADUSWWP 15:51
PROVIDERS: ATTEND Family Medicine
DX: R10.2 Pelvic and perineal pain (principal)
CPT/HCPCS: 76870; 93975

== ENCOUNTER → 2024-04-19 | Outpatient (CLI) | payer BC ==
[2024-04-19 17:34] LABS: African American GFR (CKD) >90 (>60 ml/min/1.73 sqM); Blood Urea Nitrogen 14 mg/dL (9-20); Non-African American GFR(CKD) 86 (>60 ml/min/1.73 sqM)
--- NOTE | 2024-04-19 23:14 | CT ---
EXAMINATION TYPE: CT pelvis w con DATE OF EXAM: 04/19/2024 6:59 PM COMPARISON: 11/18/2022 CLINICAL INDICATION: Male, 64 years old with history of R19.00, left groin pain TECHNIQUE: Axial images were obtained from above the diaphragm to the pubic rami in the axial plane a t 5 mm thick sections. Reconstructed images are reviewed on the computer in the coronal plane. CONTRAST: 100 mL of Isovue 300. Study performed with Oral Contrast DLP: 1008.8 mGycm, Automated exposure control for dose reduction was used. FINDINGS: CT PELVIS: Direct diverticuli are within the sigmoid colon. No adjacent inflammatory changes to suggest acute di verticulitis. Prior anastomosis in the distal sigmoid colon appears normal There are loops of bowel w hich are incompletely distended or lack oral contrast limiting their evaluation. Appendix: Normal as visualized. Urinary bladder: Normal. Genitourinary structures: Prostate appears normal Osseous structures: No suspicious lytic or sclerotic lesions. No suspicious adenopathy. Incidental note is made of inferior right nonobstructing renal stones IMPRESSION: 1. No suspicious abnormality to account for groin pain [facility], , 04/19/2024 11:12 PM
== END | disposition home or self-care (01) ==
LOC: RADCTMAIN 16:57
PROVIDERS: ATTEND Family Medicine
DX: R19.00 Intra-abdominal and pelvic swelling, mass and lump, unspecified site (principal)
CPT/HCPCS: 82565; 84520; 72193; 36415; Q9967

== ENCOUNTER 2024-10-04 07:05 | Day surgery (SDC) | payer BC ==
[2024-10-04 07:44] VITALS: TEMP 96.7
[2024-10-04] MEDS: LACTATED RINGERS 1,000 ML IV SCH (07:46)
[2024-10-04] MEDS: IV FLUID CONTINUATION 1,000 ML IV ONE (07:54)
[2024-10-04 07:55] LABS: Glucose,Whole Blood 184 mg/dL (70-110)
[2024-10-04] MEDS ORDERED: PROPOFOL 10 MG/ML 20 ML VIAL IV ONE (08:57)
--- NOTE | 2024-10-04 09:20 | P.PCN ---
Date of Procedure: 10/04/24 Procedure(s) Performed: BRIEF HISTORY: Patient is a pleasant 64-year-old pleasant white male scheduled for an elective colonoscopy as a part of evaluation of intermittent rectal bleeding. PROCEDURE PERFORMED: Colonoscopy with snare polypectomy. PREOPERATIVE DIAGNOSIS: Intermittent rectal bleeding. IV sedation per Anesthesia. PROCEDURE: After informed consent was obtained, the patient, was brought into the endoscopy unit. IV sedation was administered by Anesthesia under continuous monitoring. Digital rectal examination was normal. Initially the Olympus CF-160 flexible video colonoscope was then inserted in the rectum, gradually advanced into the cecum without any difficulty. Careful examination was performed as the scope was gradually being withdrawn. Ileocecal valve and the appendiceal orifice were visualized and appeared normal. Prep was excellent. Mucosa of the cecum appeared normal. In the ascending colon there was a 5 mm polyp removed with cold snare polypectomy. In the transverse colon there was a 3 mm, 5 mm and a 7 mm polyp removed by cold snare polypectomy. In the descending colon there was a 6 mm polyp removed by cold snare polypectomy. In the sigmoid colon there was a 5 mm polyp removed by cold snare polypectomy. Scattered left-sided diverticulosis seen. Evidence of previous sigmoid resection with anastomosis at 20 cm from the anal verge that appeared normal. The rectum appeared normal. Retroflexion was performed in the rectum and small internal were seen. The patient tolerated the procedure well. IMPRESSION: 5 mm ascending colon polyp status post cold snare polypectomy 3 mm, 5 mm and 6 mm transverse colon polyp status post cold snare polypectomy 6 mm descending colon polyp status post cold snare polypectomy 5 mm sigmoid colon polyp status post cold snare polypectomy Scattered sigmoid diverticulosis Anastomosis from previous sigmoid resection at 20 cm from anal verge that appeared normal Small internal hemorrhoids RECOMMENDATIONS: Findings of this examination were discussed with the patient as well as his family. He was advised to follow-up with the biopsy results. If the biopsy reveals adenoma he can have repeat colonoscopy in 3 years. Continue with a high-fiber diet and take fiber supplements on a regular basis. Recommend to resume Eliquis today..
[2024-10-04 09:27] VITALS: PULSE 57; RESP 16
[2024-10-04 09:40] VITALS: BP 111/69
== END 2024-10-04 10:00 | disposition home or self-care (01) ==
LOC: ORWHC2ENDO 07:05
PROVIDERS: ATTEND Internal Medicine Gastroenterology
DX: D12.2 Benign neoplasm of ascending colon (principal); D12.3 Benign neoplasm of transverse colon; D12.4 Benign neoplasm of descending colon; D12.5 Benign neoplasm of sigmoid colon; K57.30 Diverticulosis of large intestine without perforation or abscess without bleeding; K64.8 Other hemorrhoids; I48.91 Unspecified atrial fibrillation; G47.33 Obstructive sleep apnea (adult) (pediatric); I10 Essential (primary) hypertension; E11.9 Type 2 diabetes mellitus without complications; M19.90 Unspecified osteoarthritis, unspecified site; N40.0 Benign prostatic hyperplasia without lower urinary tract symptoms; K21.9 Gastro-esophageal reflux disease without esophagitis; Z85.51 Personal history of malignant neoplasm of bladder; Z79.899 Other long term (current) drug therapy; Z79.01 Long term (current) use of anticoagulants; Z79.84 Long term (current) use of oral hypoglycemic drugs; Z98.890 Other specified postprocedural states; Z90.49 Acquired absence of other specified parts of digestive tract; Z90.89 Acquired absence of other organs; Z88.8 Allergy status to other drugs, medicaments and biological substances
CPT/HCPCS: 88305; 45385; J2704